=== PATIENT | female | born 1965 | race Caucasian/White ===

== ENCOUNTER 2020-08-03 11:03 | Inpatient (IN) | payer MEDICAID ==
[2020-08-03] VITALS (20 sets, daily range): BP systolic 78–103; BP diastolic 42–72
[~2020-08-03] VITALS: Ht 162.6 cm; Wt 94.5 kg
--- NOTE | 2020-08-03 11:07 | Emergency Room Report ---
History of Present Illness General Chief Complaint: Abnormal Labs Source: Patient, EMS Present Illness HPI Patient is a 55-year-old female past medical history of diabetes noncompliant with medication and obesity who was brought in by EMS from home for generalized weakness. Patient complains of generalized weakness for the past several days and states that she has been in bed not doing much. She reports fevers at home but was afebrile per EMS. She states that she feels dizzy and generally weak no focal weakness. She states that she tried to get out of bed this morning but was unable to due to her weakness. She also complains of paresthesias to her bilateral feet and hands. She states that it feels like a numb tingly feeling. She denies any chest pain or shortness of breath. She denies any abdominal pain, dysuria or diarrhea. Patient was given 150 cc of normal saline by EMS prior to arrival. They state that her blood glucose on the glucometer read high which is over 400. Allergies: Coded Allergies: No Known Allergies (Unverified , 08/03/20) COVID-19 Screening Contact w/high risk pt: No Experienced COVID-19 symptoms?: No COVID-19 Testing performed STORAGE BATTERY INSPECTOR: No Patient History Now: No Reviewed Nursing Documentation: PMH: Agreed; PSxH: Agreed Nursing Documentation-PMH Hx Diabetes: Yes Review of Systems All Other Systems: negative except mentioned in HPI Physical Exam Vital Signs Date Time Temp Pulse Resp B/P (MAP) Pulse Ox O2 Delivery O2 Flow Rate FiO2 08/03/20 10:59 98.4 88 18 103/65 (78) 98 Room Air Sp02 EP Interpretation: reviewed, normal General Appearance: no apparent distress, alert, GCS 15, non-toxic Head: normocephalic, atraumatic Eyes: bilateral eye normal inspection, bilateral eye PERRL ENT: normal pharynx, dry mucus membranes, other - Mild generalized facial edema Neck: full range of motion, supple, no meningismus Respiratory: chest non-tender, no respiratory distress, no accessory muscle use, speaking full sentences Cardiovascular #1: regular rate, rhythm Gastrointestinal: non tender, soft, no guarding, rebound, overweight Rectal: deferred Neurologic: molecular physicist III-XII nml as tested, oriented x3, other - Bilateral lower extremity 3/5 motor strength symmetric and complains of paresthesias to her lower extremities below the knee, 5 out of 5 motor strength bilateral upper extremities unable to assess gait at this time. Psychiatric: no suicidal/homicidal ideation Skin: no rash Lymphatic: no adenopathy Procedures Critical Care Time Critical Care Time Total critical care time: Approximately 35 minutes. Due to a high probability of clinically significant, life threatening deterioration, the patient required my highest level of preparedness to intervene emergently and I personally spent this critical care time directly and personally managing the patient. This critical care time included obtaining a history; examining the patient; pulse oximetry; ordering and review of studies; arranging urgent treatment with development of a management plan; evaluation of patient's response to treatment; frequent reassessment; and, discussions with other providers.This critical care time was performed to assess and manage the high probability of imminent, life- threatening deterioration that could result in multi-organ failure. It was exclusive of separately billable procedures and treating other patients and teaching time. Please see MDM section and the rest of the note for further information on patient assessment and treatment. Medical Decision Making Diagnostic Impression: Primary Impression: Sepsis Additional Impressions: UTI (urinary tract infection) Leukocytosis Hyperglycemia Hyponatremia ER Course Patient's BNP is elevated to almost 6000. Patient's chest x-ray demonstrates no evidence for acute CHF. I will use ideal body weight for fluid resuscitation. Patient given a total of 2 L of normal saline. Patient given 2 doses of IV insulin for her hyperglycemia but does not demonstrate DKA. Patient started on broad-spectrum antibiotics. Patient pending MRIs of the brain and cervical spine and thoracic spine and lumbar spine. Oncoming physician Dr. Hall to follow-up on the studies. Patient will also likely require lumbar puncture depending on the MRI results. This can be decided by the admitting physician. Laboratory Tests Test 08/03/20 11:15 08/03/20 11:20 08/03/20 11:50 08/03/20 12:15 Venous Blood pH 7.279 Venous Blood Partial Pressure CO2 46.5 Venous Blood Partial Pressure O2 32.7 Venous Blood HCO3 21.3 Venous Blood Base Excess -5.4 Venous Blood Carboxyhemoglobin 1.2 % (0.5-1.5) Methemoglobin 0.3 White Blood Count 30.1 K/UL (4.8-10.8) *H Red Blood Count 3.85 M/UL (4.20-5.40) L Hemoglobin 11.4 G/DL (12.0-16.0) L Hematocrit 34.5 % (37.0-47.0) L Mean Corpuscular Volume 90 FL (80-99) Mean Corpuscular Hemoglobin 29.7 PG (27.0-31.0) Mean Corpuscular Hemoglobin Concent 33.2 G/DL (32.0-36.0) Red Cell Distribution Width 12.3 % (11.6-14.8) Platelet Count 143 K/UL (150-450) L Mean Platelet Volume 11.4 FL (6.5-10.1) H Neutrophils (%) (Auto) % (45.0-75.0) Lymphocytes (%) (Auto) % (20.0-45.0) Monocytes (%) (Auto) % (1.0-10.0) Eosinophils (%) (Auto) % (0.0-3.0) Basophils (%) (Auto) % (0.0-2.0) Differential Total Cells Counted 100 Neutrophils % (Manual) 78 % (45-75) H Lymphocytes % (Manual) 5 % (20-45) L Monocytes % (Manual) 11 % (1-10) H Eosinophils % (Manual) 0 % (0-3) Basophils % (Manual) 0 % (0-2) Band Neutrophils 6 % (0-8) Platelet Estimate Decreased L Platelet Morphology Normal Polychromasia 1+ Anisocytosis 1+ Erythrocyte Sedimentation Rate 93 MM/HR (0-30) H Prothrombin Time 10.7 SEC (9.30-11.50) Prothrombin Time INR 1.0 (0.9-1.1) Activated Partial Thromboplast Time 31 SEC (23-33) Sodium Level 126 MMOL/L (136-145) L Potassium Level 4.8 MMOL/L (3.5-5.1) Chloride Level 91 MMOL/L (98-107) L Carbon Dioxide Level 22 MMOL/L (21-32) Anion Gap 13 mmol/L (5-15) Blood Urea Nitrogen 32 mg/dL (7-18) H Creatinine 2.1 MG/DL (0.55-1.30) H Estimated Glomerular Filtration Rate 24.3 mL/min (>60) Glucose Level 667 MG/DL (74-106) *H Calcium Level 7.9 MG/DL (8.5-10.1) L Phosphorus Level 4.8 MG/DL (2.5-4.9) Magnesium Level 1.8 MG/DL (1.8-2.4) Total Bilirubin 0.9 MG/DL (0.2-1.0) Aspartate Amino Transferase (AST) 46 U/L (15-37) H Alanine Aminotransferase (ALT) 50 U/L (12-78) Alkaline Phosphatase 246 U/L (46-116) H Total Creatine Kinase 46 U/L (26-308) Troponin I 0.010 ng/mL (0.000-0.056) C-Reactive Protein, Quantitative 55.3 mg/dL (0.00-0.90) H Pro-B-Type Natriuretic Peptide 5930 pg/mL (0-125) H Total Protein 6.5 G/DL (6.4-8.2) Albumin 2.3 G/DL (3.4-5.0) L Globulin 4.2 g/dL Albumin/Globulin Ratio 0.5 (1.0-2.7) L Acetone Level Positive-small (NEGATIVE) Urine Color Pale yellow Urine Appearance Slightly cloudy Urine pH 5 (4.5-8.0) Urine Specific Mittie 1.015 (1.005-1.035) Urine Protein 3+ (NEGATIVE) H Urine Glucose (UA) 4+ (NEGATIVE) H Urine Ketones 2+ (NEGATIVE) H Urine Blood 4+ (NEGATIVE) H Urine Nitrite Negative (NEGATIVE) Urine Bilirubin Negative (NEGATIVE) Urine Urobilinogen Normal MG/DL (0.0-1.0) Urine Leukocyte Esterase 1+ (NEGATIVE) H Urine RBC 2-4 /HPF (0 - 2) H Urine WBC 20-30 /HPF (0 - 2) H Urine Squamous Epithelial Cells Few /LPF (NONE/OCC) Urine Bacteria Moderate /HPF (NONE) H Lactic Acid Level 2.40 mmol/L (0.4-2.0) H POC Whole Blood Glucose 515 MG/DL (74-106) *H Microbiology Date/Time Source Procedure Growth Status 08/03/20 12:04 Nasopharynx SARS-CoV-2 RdRp Gene Assay - Final Complete EKG Diagnostic Results Troponin ordered: Yes When was troponin ordered?: Aug 03, 2020 EKG Time: 11:12 EP Interpretation: Marie Denny MD Rate: normal - 83 bpm Rhythm: NSR ST Segments: no acute changes ASA given to the pt in ED: No Rhythm Strip Diag. Results Rhythm Strip Time: 11:20 EP Interpretation: yes - Marie Denny MD Rate: 83 bpm Rhythm: NSR, no PVC's, no ectopy Chest X-Ray Diagnostic Results Chest X-Ray Diagnostic Results : Chest X-Ray Ordered: Yes # of Views/Limited/Complete: 1 View Indication: Other - weakness EP Interpretation: Yes Interpretation: no consolidation, no effusion, no pneumothorax, no acute cardiopulmonary disease Impression: No acute disease Electronically Signed by: Marie Denny MD Last Vital Signs Date Time Temp Pulse Resp B/P (MAP) Pulse Ox O2 Delivery O2 Flow Rate FiO2 08/03/20 10:59 98.4 88 18 103/65 (78) 98 Room Air Disposition: ADMITTED INPATIENT - ICU Condition: Critical Signed Out To: Dr. Hall pending MRI's brain, C, T, and L spine at 1400 Physician Consult: Dr. Camp Scripts No Active Prescriptions or Reported Meds Additional Instructions: Please note that this report is being documented using [employer] technology. This can lead to erroneous entry secondary to incorrect interpretation by the dictating instrument. Sepsis Event Note Evaluation Current Stage of Sepsis: Sepsis Possible Source: Genitourinary Focused Exam Allergies: Coded Allergies: No Known Allergies (Unverified , 08/03/20) Date Exam Occurred: Aug 03, 2020 Time Exam Occurred: 13:08 Laboratory Studies Laboratory Tests Test 08/03/20 11:15 08/03/20 11:20 08/03/20 11:50 08/03/20 12:15 Venous Blood pH 7.279 Venous Blood Partial Pressure CO2 46.5 Venous Blood Partial Pressure O2 32.7 Venous Blood HCO3 21.3 Venous Blood Base Excess -5.4 Venous Blood Carboxyhemoglobin 1.2 % (0.5-1.5) Methemoglobin 0.3 White Blood Count 30.1 K/UL (4.8-10.8) *H Red Blood Count 3.85 M/UL (4.20-5.40) L Hemoglobin 11.4 G/DL (12.0-16.0) L Hematocrit 34.5 % (37.0-47.0) L Mean Corpuscular Volume 90 FL (80-99) Mean Corpuscular Hemoglobin 29.7 PG (27.0-31.0) Mean Corpuscular Hemoglobin Concent 33.2 G/DL (32.0-36.0) Red Cell Distribution Width 12.3 % (11.6-14.8) Platelet Count 143 K/UL (150-450) L Mean Platelet Volume 11.4 FL (6.5-10.1) H Neutrophils (%) (Auto) % (45.0-75.0) Lymphocytes (%) (Auto) % (20.0-45.0) Monocytes (%) (Auto) % (1.0-10.0) Eosinophils (%) (Auto) % (0.0-3.0) Basophils (%) (Auto) % (0.0-2.0) Differential Total Cells Counted 100 Neutrophils % (Manual) 78 % (45-75) H Lymphocytes % (Manual) 5 % (20-45) L Monocytes % (Manual) 11 % (1-10) H Eosinophils % (Manual) 0 % (0-3) Basophils % (Manual) 0 % (0-2) Band Neutrophils 6 % (0-8) Platelet Estimate Decreased L Platelet Morphology Normal Polychromasia 1+ Anisocytosis 1+ Erythrocyte Sedimentation Rate 93 MM/HR (0-30) H Prothrombin Time 10.7 SEC (9.30-11.50) Prothromb Time International Ratio 1.0 (0.9-1.1) Activated Partial Thromboplast Time 31 SEC (23-33) Sodium Level 126 MMOL/L (136-145) L Potassium Level 4.8 MMOL/L (3.5-5.1) Chloride Level 91 MMOL/L (98-107) L Carbon Dioxide Level 22 MMOL/L (21-32) Anion Gap 13 mmol/L (5-15) Blood Urea Nitrogen 32 mg/dL (7-18) H Creatinine 2.1 MG/DL (0.55-1.30) H Estimat Glomerular Filtration Rate 24.3 mL/min (>60) Glucose Level 667 MG/DL (74-106) *H Calcium Level 7.9 MG/DL (8.5-10.1) L Phosphorus Level 4.8 MG/DL (2.5-4.9) Magnesium Level 1.8 MG/DL (1.8-2.4) Total Bilirubin 0.9 MG/DL (0.2-1.0) Aspartate Amino Transf (AST/SGOT) 46 U/L (15-37) H Alanine Aminotransferase (ALT/SGPT) 50 U/L (12-78) Alkaline Phosphatase 246 U/L (46-116) H Total Creatine Kinase 46 U/L (26-308) Troponin I 0.010 ng/mL (0.000-0.056) C-Reactive Protein, Quantitative 55.3 mg/dL (0.00-0.90) H Pro-B-Type Natriuretic Peptide 5930 pg/mL (0-125) H Total Protein 6.5 G/DL (6.4-8.2) Albumin 2.3 G/DL (3.4-5.0) L Globulin 4.2 g/dL Albumin/Globulin Ratio 0.5 (1.0-2.7) L Acetone Level Positive-small (NEGATIVE) Urine Color Pale yellow Urine Appearance Slightly cloudy Urine pH 5 (4.5-8.0) Urine Specific Mittie 1.015 (1.005-1.035) Urine Protein 3+ (NEGATIVE) H Urine Glucose (UA) 4+ (NEGATIVE) H Urine Ketones 2+ (NEGATIVE) H Urine Blood 4+ (NEGATIVE) H Urine Nitrite Negative (NEGATIVE) Urine Bilirubin Negative (NEGATIVE) Urine Urobilinogen Normal MG/DL (0.0-1.0) Urine Leukocyte Esterase 1+ (NEGATIVE) H Urine RBC 2-4 /HPF (0 - 2) H Urine WBC 20-30 /HPF (0 - 2) H Urine Squamous Epithelial Cells Few /LPF (NONE/OCC) Urine Bacteria Moderate /HPF (NONE) H Lactic Acid Level 2.40 mmol/L (0.4-2.0) H POC Whole Blood Glucose 515 MG/DL (74-106) *H Vital Signs Last 24 Hour Vital Signs Date Time Temp Pulse Resp B/P (MAP) Pulse Ox O2 Delivery O2 Flow Rate FiO2 08/03/20 11:18 98.4 91 18 103/65 98 Room Air 08/03/20 10:59 98.4 88 18 103/65 (78) 98 Room Air Respiratory Exam: Clear Cardiovascular Exam: RRR Capillary Refill: Less Than 2 Seconds Peripheral Pulse: Strong Marie Denny M.D. Aug 03, 2020:07
[2020-08-03] MEDS ORDERED: Insulin Human Regular 100units/ml 3ml IV ONE ×3 (11:15→18:15)
--- NOTE | 2020-08-03 11:24 | NUR ---
ED Nurse Note: Patient UMAIR RA34 from home c/o hyperglycemia. Per EMS, BS says "High". Denies nausea/vomiting. Pt also c/o weakness and chronic foot pain. a/ox4, bp 89/56. other vss at this time. blood sugar critically high. bedrest. incontinent b/b.
--- NOTE | 2020-08-03 11:25 | NUR ---
ED Nurse Note: Patient UMAIR WANG from home c/o hyperglycemia. Per EMS, BS says "High". Denies nausea/vomiting. Pt also c/o weakness and chronic foot pain. a/ox4, bp 89/56. other vss at this time. blood sugar critically high. bedrest. incontinent b/b. Addendum: 08/03/20 at 1128 by ONDINA patient presents with peripheral iv access left ac. blood collected, sent to lab.
[2020-08-03 11:39] LABS: HEMATOCRIT 34.5 % (37.0-47.0); HEMOGLOBIN 11.4 G/DL (12.0-16.0); MEAN CORPUSCULAR VOLUME 90 FL (80-99); PLATELET COUNT 143 K/UL (150-450); RED BLOOD COUNT 3.85 M/UL (4.20-5.40); RED CELL DISTRIBUTION WIDTH 12.3 % (11.6-14.8)
[2020-08-03 11:45] LABS: WHITE BLOOD COUNT 30.1 K/UL (4.8-10.8)
[2020-08-03] MEDS ORDERED: Cefepime HCl 2 GM in D5W 55 ML IVPB ONE (12:00)
[2020-08-03] MEDS ORDERED: Vancomycin 1.5gm/300ml Premix 300 ML IVPB ONE (12:00)
[2020-08-03 12:07] LABS: ALANINE AMINOTRANSFERASE 50 U/L (12-78); ALBUMIN 2.3 G/DL (3.4-5.0); ALBUMIN/GLOBULIN RATIO 0.5 (1.0-2.7); ALKALINE PHOSPHATASE 246 U/L (46-116); ANION GAP 13 mmol/L (5-15); ASPARTATE AMINO TRANSFERASE 46 U/L (15-37); BILIRUBIN,TOTAL 0.9 MG/DL (0.2-1.0); BLOOD UREA NITROGEN 32 mg/dL (7-18); CALCIUM 7.9 MG/DL (8.5-10.1); CARBON DIOXIDE 22 MMOL/L (21-32); CHLORIDE 91 MMOL/L (98-107); CREATINE KINASE 46 U/L (26-308); CREATININE 2.1 MG/DL (0.55-1.30); PHOSPHORUS 4.8 MG/DL (2.5-4.9); POTASSIUM 4.8 MMOL/L (3.5-5.1); SODIUM 126 MMOL/L (136-145)
--- NOTE | 2020-08-03 12:21 | Diagnostic Imaging Report ---
Indication: Shortness of breath Technique: One view of the chest Comparison: none Findings: Body habitus limits evaluation. The heart is borderline enlarged. No definite acute infiltrates, effusions, or congestion. Impression: Borderline cardiomegaly. No definite acute process
[2020-08-03] MEDS ORDERED: Heparin1,000 units/500ml Premix(Conc:2 units/ml) IV ONE (12:30)
[2020-08-03] MEDS ORDERED: Lidocaine 1% Plain 30 ml INJ ONE (12:30)
[2020-08-03 12:32] LABS: APPEARANCE,URINE SLIGHTLY CLOUDY; BILIRUBIN, URINE NEGATIVE (NEGATIVE); COLOR,URINE PALE YELLOW; GLUCOSE, URINE (UA) 4+ (NEGATIVE); KETONES,URINE 2+ (NEGATIVE); LEUKOCYTE ESTERASE ,URINE 1+ (NEGATIVE); NITRITE,URINE NEGATIVE (NEGATIVE); PH,URINE 5 (4.5-8.0); PROTEIN,URINE 3+ (NEGATIVE); UROBILINOGEN,URINE NORMAL MG/DL (0.0-1.0)
[2020-08-03] MEDS ORDERED: Gadavist 7.5mMol/7.5ml vial IV PRN (12:45)
--- NOTE | 2020-08-03 12:52 | NUR ---
ED Nurse Note: patient was taken to MRI via [facility]
--- NOTE | 2020-08-03 13:08 | NUR ---
patient back on floor from ct scan.
--- NOTE | 2020-08-03 13:21 | Diagnostic Imaging Report ---
Indications: Headache Technique: Spiral acquisitions obtained through the brain. Angled axial and coronal 5 x 5 mm slices were reconstructed. Total dose length product 1045 mGycm. CTDI vol(s) 53 mGy. Dose reduction achieved using automated exposure control Comparison: None. Findings: No acute intracranial hemorrhage or edema mass effect nor midline shift. Normal rowan-white differentiation. Normal size ventricles and extra axial CSF spaces. The mastoids are clear. The calvarium is intact Impression: Negative The CT scanner at [facility] is accredited by the [employer] and the scans are performed using protocols designed to limit radiation exposure to as low as reasonably achievable to attain images of sufficient resolution adequate for diagnostic evaluation.
--- NOTE | 2020-08-03 13:49 | NUR ---
ED Nurse Note: Dr. Almendarez here to insert picc line. Addendum: 08/03/20 at 1400 by DCHO left upper arm picc line. intact and patent.
--- NOTE | 2020-08-03 14:37 | NUR ---
[facility]
--- NOTE | 2020-08-03 16:35 | Brief Operative Note ---
Immediate Post Operative Note Operative Note Pre-op Diagnosis: needs access Procedure: PICC Post-op Diagnosis: same as pre-op Anesthesia: local Specimen: none Complications: none Fluids: none Implant(s) used?: No Jalil Coello MD Aug 03, 2020 16:34
--- NOTE | 2020-08-03 17:25 | NUR ---
patient back on floor from mri.
--- NOTE | 2020-08-03 17:45 | Diagnostic Imaging Report ---
Indication: Right lower extremity weakness, fever, paralysis Technique: sagittal T1 fast spin echo, axial T1 and T2 FLAIR PROPELLER, axial T2 FS PROPELLER, T2* GRE, axial diffusion weighted images, post contrast axial and coronal T1 FLAIR PROPELLER images. ADC and exponential ADC maps generated Comparison: Head CT of earlier the same day Findings: . No abnormal areas of restricted diffusion to suggest acute infarction. No acute hemorrhage or edema. No mass effect nor midline shift. There is a equivocal mild pachymeningeal enhancement, most notable in the tentorium and to a slight extent over the convexities. No parenchymal enhancement.. Normal size ventricles and extra axial CSF spaces. There is ethmoid sinus disease. The visualized orbits are unremarkable.. There is a small amount of fluid within the right mastoid air cells. . 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 Significance uncertain, possible differential considerations include infection, intracranial hypotension, idiopathic pachymeningitis Otherwise unremarkable exam. No evidence of infarct, intracranial bleed, or significant parenchymal enhancement. No mass effect. Sinus and right mastoid disease incidentally noted
--- NOTE | 2020-08-03 17:58 | Diagnostic Imaging Report ---
Indication: Weakness, right lower extremity paralysis Technique: Sagittal T1 fast spin echo, sagittal and axial T2 FRFSE, sagittal STIR, axial T1, precontrast axial T1 fat saturated, postcontrast axial and sagittal T1 fat-saturated images obtained of the lumbar spine Comparison: none Findings: Vertebral body heights are preserved. The bony alignment is normal. The disc spaces are preserved. There is slight desiccation of the L4-5 disc. The conus medullaris terminates at the L1-2 level. The disc spaces are preserved. No significant disc bulge or protrusion, spinal stenosis, or neural foraminal stenosis is demonstrated. Postcontrast images demonstrate no unusual contrast enhancement. Specifically, no significant dorsal nerve root or cauda equina enhancement is demonstrated. Included extraspinal soft tissues are unremarkable. Impression: Essentially unremarkable exam. No evidence of significant neural impingement or nerve root enhancement
--- NOTE | 2020-08-03 18:02 | Diagnostic Imaging Report ---
Indication: Right lower extremity paralysis Technique: Sagittal T1 FLAIR, sagittal and axial T2 FRFSE and sagittal STIR, axial 3-D COSMIC ASPIR, pre and postcontrast fat-saturated axial and sagittal T1-weighted images of the cervical spine Comparison: none Findings: No intrinsic cord signal abnormality demonstrated. Normal bony alignment. Vertebral marrow signal is normal. Vertebral body heights are preserved. The disc spaces are preserved. There is no prevertebral soft tissue swelling. No significant disc bulge or protrusion, spinal stenosis, or neural foraminal stenosis. No unusual contrast enhancement is demonstrated. Impression: Negative
--- NOTE | 2020-08-03 18:43 | NUR ---
ED Nurse Note: gave report to SOHEILA Kat on ICU unit.
--- NOTE | 2020-08-03 18:49 | NUR ---
ED Nurse Note: patient admitted to ICU floor for sepsis. a/ox4, bp 94/50, other vss. calm, cooperative, nad noted, belongings transferred with patient. last blood sugar 506, md aware, novolin 10 units given.
--- NOTE | 2020-08-03 18:55 | NUR ---
NURSE NOTES: Patient arrived to the unit on gurney from the ED and placed into room 246-F. underwear hemmer placed, vital signs taken, accucheck: 474. Received report from SOHEILA Kat. Only belongings are a shirt and bra; all other belongings taken home from family. Will initiate plan of care.
--- NOTE | 2020-08-03 19:18 | NUR ---
NURSE NOTES: Called Dr. Camp urgent line for admission orders, awaiting call back.
[2020-08-03] MEDS: Dyna-Hex 2% Top Sol 2oz TOPIC SCH (20:00)
--- NOTE | 2020-08-03 20:00 | NUR ---
NURSE NOTES: Received orders from Dr. Camp, will carry out. Blood drawn via left upper arm PICC for CBC CMP, TSH and sent to labs for results. 1L NS bolus running via PICC.
[2020-08-03] MEDS ORDERED: Milk of Magnesia 30ml Ud ORAL PRN (20:15)
--- NOTE | 2020-08-03 20:59 | NUR ---
NURSE NOTES: Potassium resulted in 2.3, recommended by Cammy from lab that blood maybe contaminated and to have a re-draw. Will re-draw now.
[2020-08-03] MEDS: NovoLOG Insulin Flexpen SUBQ SCH (21:00)
[2020-08-03] MEDS ORDERED: Cefepime HCl 1 GM in NS 55 ML IVPB ONE (21:00)
[2020-08-03] MEDS: Levemir Flexpen SUBQ SCH (21:34)
[2020-08-03] MEDS: Heparin 5000 units/ml inj SUBQ SCH (21:36)
[2020-08-03 21:43] LABS: ALBUMIN 1.9 G/DL (3.4-5.0); ALBUMIN/GLOBULIN RATIO 0.5 (1.0-2.7); BILIRUBIN,TOTAL 0.9 MG/DL (0.2-1.0); CALCIUM 7.1 MG/DL (8.5-10.1); CREATININE 1.8 MG/DL (0.55-1.30); POTASSIUM 3.9 MMOL/L (3.5-5.1)
--- NOTE | 2020-08-03 21:45 | NUR ---
NURSE NOTES: Dr. Camp is here to see and assess patient. Updates given.
--- NOTE | 2020-08-03 22:14 | NUR ---
NURSE NOTES: BP has been decreasing, all extremities BP taken. Latest BP: 75/46. Hillman catheter inserted, 800ml urine out.
--- NOTE | 2020-08-03 22:15 | NUR ---
NURSE NOTES: Called Dr. Camp urgent line to inform him of low BP.
[2020-08-03 23:24] LABS: HEMATOCRIT 25.5 % (37.0-47.0); HEMOGLOBIN 8.9 G/DL (12.0-16.0); MEAN CORPUSCULAR VOLUME 87 FL (80-99); PLATELET COUNT 109 K/UL (150-450); RED BLOOD COUNT 2.95 M/UL (4.20-5.40); RED CELL DISTRIBUTION WIDTH 12.7 % (11.6-14.8); WHITE BLOOD COUNT 18.9 K/UL (4.8-10.8)
[2020-08-04] VITALS (14 sets, daily range): BP systolic 90–142; BP diastolic 49–82
--- NOTE | 2020-08-04 | NUR ---
NURSE NOTES: Bed bath given, linens changed. Patient able to turn and repositioned. BP stabilizing.
[2020-08-04] MEDS ORDERED: Insulin Human Regular 100units/ml 3ml IV SCH (01:00)
--- NOTE | 2020-08-04 02:00 | NUR ---
NURSE NOTES: 10units regular insulin given one time order by Dr. Camp.
--- NOTE | 2020-08-04 02:30 | History and Physical Report ---
DATE OF ADMISSION: 08/03/2020 REASON FOR ADMISSION: Diabetic ketoacidosis. HISTORY OF PRESENT ILLNESS: This 55-year-old female, with a known history of diabetes mellitus, who is noncompliant with medications and diabetes self-care, has had several days of anorexia and progressive weakness. She has not been able to mobilize. She has had some fevers at home. She thinks she may have had some fevers at home as well. She has not been able to get up due to dizziness and weakness. She feels increasing pain and burning in her hands and feet. She denies chest pain, nausea, vomiting, or shortness of breath. She has not had any dysuria or diarrhea. In the emergency room, the patient was noted to have significantly abnormal lab studies and admitted to the intensive care unit for further management. Central venous access was obtained with a PICC line and fluid challenges were given as well. PAST MEDICAL HISTORY: Diabetes mellitus. ALLERGIES: None. CURRENT MEDICATIONS: None. FAMILY HISTORY: Noncontributory. SOCIAL HISTORY: Negative for smoking, alcohol, or substance abuse. REVIEW OF SYSTEMS: Notable for the absence of COVID-19 exposure or risk factors, per daughter 2 to 3 months of weight loss and poor appetite, otherwise all systems negative other than noted above. PHYSICAL EXAMINATION: VITAL SIGNS: Blood pressure has ranged from 74 to 105 systolic over 47 to 65 diastolic, heart rate in the 80s, respiratory rate 18, and afebrile. GENERAL: Appears older than stated age. Oropharynx clear. Mucous membranes dry. NECK: Supple. No adenopathy. LUNGS: Clear. BREASTS: No breast masses. CHEST WALL: Without deformity. CARDIAC: Regular, no murmur. ABDOMEN: Soft. No focal tenderness. EXTREMITIES: No edema. It should be noted that breast exam is limited due to body positioning and location at the time of this evaluation. LABORATORY DATA: Urinalysis with 20-30 white cells. Sodium 126, potassium 4.8, chloride 91, bicarb 22, BUN 32, creatinine 2.1. Glucose 667. Troponin negative. Pro-natriuretic peptide 5900, albumin 2.3, and ketones slightly positive. Imaging studies of the lumbar and cervical spine revealed no acute pathology. MRI of the brain revealed possible meningeal inflammation. Chest x-ray with no acute process. IMPRESSION: 1. Urinary tract infection. 2. Probable sepsis. 3. Hypovolemia. 4. Acute renal failure. 5. Diabetes with diabetic ketoacidosis. 6. Lactic acidosis. 7. Hyponatremia. 8. Hypochloremia. 9. Acute on chronic diastolic congestive heart failure. 10. Noncompliance. 11. Severe protein-calorie malnutrition. PLAN: Insulin intravenously and possible drip, hydration, fluid challenge. May need pressors, empiric antimicrobials, protein supplement. Further workup based on initial diagnostic studies. [place] M.D. DR: AURA JOB#: [id number] CC:
--- NOTE | 2020-08-04 04:00 | NUR ---
NURSE NOTES: Left upper arm PICC line dressing changed w/ biopatch. Blood drawn via PICC line for AM results. Phone hooked up in patient's room per family request.
[2020-08-04 05:41] LABS: ALANINE AMINOTRANSFERASE 44 U/L (12-78); ALBUMIN/GLOBULIN RATIO 0.5 (1.0-2.7); ALKALINE PHOSPHATASE 228 U/L (46-116); ASPARTATE AMINO TRANSFERASE 33 U/L (15-37); BILIRUBIN,TOTAL 0.9 MG/DL (0.2-1.0); BLOOD UREA NITROGEN 36 mg/dL (7-18); CALCIUM 7.6 MG/DL (8.5-10.1); CARBON DIOXIDE 22 MMOL/L (21-32); CHLORIDE 99 MMOL/L (98-107); CREATININE 1.6 MG/DL (0.55-1.30); POTASSIUM 3.6 MMOL/L (3.5-5.1); SODIUM 132 MMOL/L (136-145)
[2020-08-04 05:49] LABS: HEMATOCRIT 27.8 % (37.0-47.0); MEAN CORPUSCULAR VOLUME 85 FL (80-99); PLATELET COUNT 124 K/UL (150-450); RED BLOOD COUNT 3.27 M/UL (4.20-5.40); RED CELL DISTRIBUTION WIDTH 13.5 % (11.6-14.8); WHITE BLOOD COUNT 20.4 K/UL (4.8-10.8)
--- NOTE | 2020-08-04 06:00 | NUR ---
NURSE NOTES: Patient is sleeping comfortably. BP: 102/52.
[2020-08-04] MEDS: NovoLOG Insulin Flexpen SUBQ SCH ×4 (06:28→22:58)
[2020-08-04] MEDS ORDERED: NovoLOG Insulin Flexpen SUBQ SCH (06:30)
--- NOTE | 2020-08-04 07:18 | NUR ---
NURSE HAND-OFF REPORT: Latest Vital Signs: Temperature 98.0 , Pulse 87 , B/P 110 /61 , Respiratory Rate 19 , O2 SAT 94 , Room Air, O2 Flow Rate . Vital Sign Comment: Stable EKG Rhythm: Sinus Rhythm Rhythm change?: N MD Notified?: - MD Response: Latest Hickey Fall Score: 60 Fall Risk: High Risk Safety Measures: Call light Within Reach, Bed Alarm Zone 2, Side Rails Side Rails x2, Bed position Low and Locked. Fall Precautions: Yellow Socks Yellow Gown Door Sign Patient Fall Education Report given to .
--- NOTE | 2020-08-04 07:19 | NUR ---
NURSE NOTES: Received patient in bed. On room air. Awake, verbal, oriented, able to make needs known. Currently eating breakfast. No acute distress. Bed in lowest position. Call light within reach. Will continue plan of care.
--- NOTE | 2020-08-04 07:26 | Diagnostic Imaging Report ---
Indications: Needs long-term IV access Technique: Procedure performed at bedside. Procedural timeout performed. Ultrasound confirms patent compressible left basilic vein. Total sterile technique, including sterile probe cover and sterile gel, sterile gloves, hand hygiene, hat, mask,, sterile gown, large sterile drape, and preparation with 2% chlorhexidine utilized. Local anesthesia with 1% lidocaine. Under real-time ultrasound guidance, puncture basilic vein using 21-gauge needle, passage 0.018 guidewire, exchange for 4 Estonian peel-away sheath. 4 Estonian Bard dual-lumen power PICC cut to 44 cm. It was inserted through the peel-away sheath. Peel-away sheath and guidewire removed. Catheter fixed to the skin. Both catheter ports aspirated and flushed. Patient tolerated procedure well, without immediate complication. Followup chest x-ray obtained, documents catheter tip position at the high right atrium Impression: Successful bedside placement of left arm PICC under sonographic guidance, as described above.
--- NOTE | 2020-08-04 08:22 | NUR ---
NURSE NOTES: Dr. Jarrett Alexis at bedside. made aware of latest WBC results.
[2020-08-04] MEDS: Cefepime HCl 500 MG in NS 55 ML IV SCH (08:52)
[2020-08-04] MEDS: Heparin 5000 units/ml inj SUBQ SCH ×2 (08:53→21:00)
[2020-08-04] MEDS: Docusate 250mg cap ORAL SCH (09:00)
[2020-08-04 09:20] LABS: CHOLESTEROL 150 MG/DL (< 200); HDL CHOLESTEROL 18 MG/DL (40-60); TRIGLYCERIDES 228 MG/DL (30-150)
[2020-08-04] MEDS ORDERED: Vancomycin 1.5gm/300ml Premix IVPB SCH (10:00)
--- NOTE | 2020-08-04 10:35 | NUR ---
NURSE NOTES: Informed Dr. Camp that patient's daughter is concerned about patient's lower extremities weakness. said that physical therapy evaluation is not ok for now since patient had low blood pressure yesterday.
--- NOTE | 2020-08-04 11:15 | Consultation ---
DATE OF CONSULTATION: 08/04/2020 INFECTIOUS DISEASE CONSULTATION CONSULTING PHYSICIAN: Jarrett Alexis MD. This consult is for coverage of Dr. Derrick Nunez. PRIMARY ATTENDING PHYSICIAN: North Camp MD. REASON FOR CONSULT: Sepsis, UTI. HISTORY OF PRESENT ILLNESS: This is a 55-year-old female, admitted yesterday from home with anorexia, weakness, dizziness. The patient is diabetic and did not take any medication, was found to have blood sugar of 667, had leukocytosis of 30,000 at the time of admission. She was also hypotensive with blood pressures as low as 78/44. PAST MEDICAL HISTORY: Diabetes mellitus, obesity. ALLERGIES: No known drug allergies. MEDICATIONS: Levemir, insulin, vancomycin, cefepime, Tylenol. SOCIAL HISTORY: . Denies alcohol, drug abuse or smoking. REVIEW OF SYSTEMS: Generalized weakness, nausea. No vomiting. No coughing. No dysuria. PHYSICAL EXAMINATION: VITAL SIGNS: Temperature is 98, pulse 89, blood pressure 90/62. GENERAL APPEARANCE: No acute distress. Obese. HEAD AND NECK: [place] conjunctivae. HEART: Normal rate. LUNGS: Clear. ABDOMEN: Soft, nontender. EXTREMITIES: No edema. LABORATORY AND DIAGNOSTIC DATA: WBC 20.4, hemoglobin 10.0, hematocrit 27.8, platelet is 124. Sodium 132, potassium 3.6, chloride 99, bicarb 22, BUN 36, creatinine 1.6. Creatinine at the time of admission was 2.1. UA showed wbc of 20 to 30, bacteria moderate. Chest x-ray showed cardiomegaly. CT scan of the head was negative. MRI of the neck was negative. COVID test is negative. IMPRESSION: Likely sepsis with leukocytosis and hypotension, has pyuria, may have UTI, has diabetes mellitus with diabetic ketoacidosis, acute renal failure, obesity, acute on chronic diastolic CHF. RECOMMENDATION: Continue cefepime. Discontinue IV vancomycin. We will follow up the cultures. At the end of my exam, I thank Dr. Camp, for involving me in the care of this patient. Jarrett Alexis M.D. DR: YEVGENIY JOB#: [id number] CC: BRYAN
--- NOTE | 2020-08-04 11:20 | NUR ---
TRANSFER TO FLOOR: Patient transferred to Telemetry room 220-2, per Dr. Camp. Report given to SOHEILA Garcia. Belongings and medications given to SOHEILA Garcia. Family and or S/O informed of transfer. Remains room air. Sinus Rhythm in the monitor.
[2020-08-04] MEDS ORDERED: Levemir Flexpen SUBQ SCH ×2 (11:30)
--- NOTE | 2020-08-04 11:30 | NUR ---
NURSE NOTES: Patient's daughter/Amy Weaver informed via telephone ([phone]) about patient's transfer.
--- NOTE | 2020-08-04 11:33 | NUR ---
NURSE NOTES: Received pt from the ICU alert and awake. pt is verbally responsive. respiration is even and unlabored on room air. pt denies any pain and discomfort. BERNIE PICC line is inplace and intact, no bleeding noted. pt is made comfortable in bed. placed call light within reach. bed alarm is on and bed is locked for safety.
--- NOTE | 2020-08-04 12:47 | Consultation ---
History of Present Illness General Date patient seen: Aug 04, 2020 Reason for Hospitalization: Abnormal Labs Present Illness HPI Patient is a 55-year-old female past medical history of diabetes noncompliant with medication and obesity who was brought in by EMS from home for generalized weakness. Patient complains of generalized weakness for the past several days and states that she has been in bed not doing much. She reports fevers at home but was afebrile per EMS. She states that she feels dizzy and generally weak no focal weakness. She states that she tried to get out of bed this morning but was unable to due to her weakness. She also complains of paresthesias to her bilateral feet and hands. She states that it feels like a numb tingly feeling. She denies any chest pain or shortness of breath. She denies any abdominal pain, dysuria or diarrhea. Patient was given 150 cc of normal saline by EMS prior to arrival. They state that her blood glucose on the glucometer read high which is over 400. abnormal lf'ts surgery called to evaluate Allergies: Coded Allergies: No Known Allergies (Unverified , 08/03/20) COVID-19 Screening Contact w/high risk pt: No Experienced COVID-19 symptoms?: No Medication History No Active Prescriptions or Reported Meds Patient History Limited by: medical condition History Provided By: Patient, Medical Record, PMD Healthcare decision maker Resuscitation status Advanced Directive on File Past Medical/Surgical History Past Medical/Surgical History: (1) Hyperglycemia (2) Hyponatremia (3) Leukocytosis (4) UTI (urinary tract infection) (5) Sepsis Review of Systems Review of Symptoms General ROS: no weight loss or fever Psychological ROS: no depression or mood changes, no memory loss Ophthalmic ROS: no visual changes or eye irritation ENT ROS: no nasal congestion, hearing loss, dizziness Allergy and Immunology ROS: no allergic symptoms or urticaria Hematological and Lymphatic ROS: no swollen glands, unusual bleeding or bruising Endocrine ROS: no polyuria, polydipsia, weight changes, temperature intolerance Respiratory ROS: no cough, shortness of breath, or wheezing Cardiovascular ROS: no chest pain or dyspnea on exertion Gastrointestinal ROS: denies abdominal pain, bright red blood in stool. Musculoskeletal ROS: no myalgias or arthralgias Neurological ROS: no TIA or stroke symptoms Dermatological ROS: no new or changing skin lesions, rashes or pruritis Physical Exam Physical Exam General appearance: alert, cooperative, no distress, appears stated age Head: Normocephalic, without obvious abnormality, atraumatic Eyes: conjunctivae/corneas clear. PERRL, EOM's intact. Fundi benign Throat: Lips, mucosa, and tongue normal. Teeth and gums normal Neck: supple, symmetrical, trachea midline, no adenopathy, thyroid: not enlarged, symmetric, no tenderness/mass/nodules, no carotid bruit and no JVD Lungs: clear to auscultation bilaterally Heart: regular rate and rhythm, S1, S2 normal, no murmur, click, rub or gallop Abdomen: soft, non-tender. Bowel sounds normal. No masses, no organomegaly Extremities: extremities normal, atraumatic, no cyanosis or edema Pulses: 2+ and symmetric Skin: Skin color, texture, turgor normal. No rashes or lesions Neurologic: Grossly normal Last 24 Hour Vital Signs Date Time Temp Pulse Resp B/P (MAP) Pulse Ox O2 Delivery O2 Flow Rate FiO2 08/04/20 12:00 98.4 89 20 115/66 (82) 96 08/04/20 10:00 89 19 111/70 (84) 95 08/04/20 09:00 88 19 112/69 (83) 96 08/04/20 08:00 Room Air 08/04/20 08:00 98.2 89 21 90/62 (71) 98 08/04/20 07:52 89 08/04/20 07:00 87 19 110/61 (77) 94 08/04/20 06:00 93 25 102/52 (69) 99 08/04/20 05:00 91 20 103/58 (73) 98 08/04/20 04:24 90 08/04/20 04:00 98.0 90 21 110/65 (80) 98 08/04/20 04:00 Room Air 08/04/20 03:00 90 23 103/73 (83) 100 08/04/20 02:00 90 18 95/49 (64) 100 08/04/20 00:15 82 17 102/66 (78) 100 08/04/20 00:00 98.5 86 18 104/60 (75) 99 08/04/20 00:00 Room Air 08/03/20 23:45 86 15 99/54 (69) 99 08/03/20 23:34 90 08/03/20 23:30 86 15 81/62 (68) 99 08/03/20 23:15 86 13 93/54 (67) 98 08/03/20 23:00 82 17 90/44 (59) 98 08/03/20 22:45 84 17 85/55 (65) 100 08/03/20 22:30 81 19 78/44 (55) 100 08/03/20 22:15 76 16 82/42 (55) 100 08/03/20 22:00 83 16 79/48 (58) 08/03/20 21:45 86 17 99/64 (76) 08/03/20 21:30 79 14 88/46 (60) 08/03/20 21:15 84 16 81/57 (65) 08/03/20 21:00 81 10 89/48 (62) 08/03/20 20:45 82 08/03/20 20:00 Room Air 08/03/20 20:00 76 9 87/52 (64) 97 08/03/20 19:45 85 19 87/72 (77) 99 08/03/20 19:15 Room Air 08/03/20 19:00 84 19 94/54 (67) 100 08/03/20 18:59 98.5 87/59 (68) 08/03/20 18:44 98.6 80 16 94/50 99 Room Air 08/03/20 17:52 98.4 85 18 94/50 98 Room Air 08/03/20 15:10 98.4 92 18 102/65 98 Room Air 08/03/20 13:18 98.4 93 18 97/58 98 Room Air Intake and Output 08/03/20 08/04/20 19:00 07:00 Intake Total 0 ml 1395 ml Output Total 1250 ml Balance 0 ml 145 ml Intake Oral 0 ml 550 ml IV Total 845 ml Output Urine Total 1250 ml # Voids 1 # Bowel Movements 2 Laboratory Tests Test 08/03/20 14:35 08/03/20 18:07 08/03/20 22:15 08/04/20 02:06 Lactic Acid Level 1.50 mmol/L (0.66-2.22) POC Whole Blood Glucose 506 MG/DL (74-106) *H Pending White Blood Count 18.9 K/UL (4.8-10.8) H Red Blood Count 2.95 M/UL (4.20-5.40) L Hemoglobin 8.9 G/DL (12.0-16.0) L Hematocrit 25.5 % (37.0-47.0) L Mean Corpuscular Volume 87 FL (80-99) Mean Corpuscular Hemoglobin 30.1 PG (27.0-31.0) Mean Corpuscular Hemoglobin Concent 34.8 G/DL (32.0-36.0) Red Cell Distribution Width 12.7 % (11.6-14.8) Platelet Count 109 K/UL (150-450) L Mean Platelet Volume 11.8 FL (6.5-10.1) H Neutrophils (%) (Auto) % (45.0-75.0) Lymphocytes (%) (Auto) % (20.0-45.0) Monocytes (%) (Auto) % (1.0-10.0) Eosinophils (%) (Auto) % (0.0-3.0) Basophils (%) (Auto) % (0.0-2.0) Differential Total Cells Counted 100 Neutrophils % (Manual) 86 % (45-75) H Lymphocytes % (Manual) 11 % (20-45) L Monocytes % (Manual) 3 % (1-10) Eosinophils % (Manual) 0 % (0-3) Basophils % (Manual) 0 % (0-2) Band Neutrophils 0 % (0-8) Platelet Estimate Decreased L Platelet Morphology Normal Sodium Level 132 MMOL/L (136-145) L Potassium Level 3.9 MMOL/L (3.5-5.1) Chloride Level 99 MMOL/L (98-107) Carbon Dioxide Level 22 MMOL/L (21-32) Anion Gap 11 mmol/L (5-15) Blood Urea Nitrogen 34 mg/dL (7-18) H Creatinine 1.8 MG/DL (0.55-1.30) H Estimat Glomerular Filtration Rate 29.1 mL/min (>60) Glucose Level 446 MG/DL (74-106) #H Calcium Level 7.1 MG/DL (8.5-10.1) L Total Bilirubin 0.9 MG/DL (0.2-1.0) Aspartate Amino Transf (AST/SGOT) 36 U/L (15-37) Alanine Aminotransferase (ALT/SGPT) 40 U/L (12-78) Alkaline Phosphatase 205 U/L (46-116) H Total Protein 5.7 G/DL (6.4-8.2) L Albumin 1.9 G/DL (3.4-5.0) L Globulin 3.8 g/dL Albumin/Globulin Ratio 0.5 (1.0-2.7) L Thyroid Stimulating Hormone (TSH) 3.652 uiU/mL (0.358-3.740) Test 08/04/20 04:00 08/04/20 06:27 White Blood Count 20.4 K/UL (4.8-10.8) H Red Blood Count 3.27 M/UL (4.20-5.40) L Hemoglobin 10.0 G/DL (12.0-16.0) L Hematocrit 27.8 % (37.0-47.0) L Mean Corpuscular Volume 85 FL (80-99) Mean Corpuscular Hemoglobin 30.5 PG (27.0-31.0) Mean Corpuscular Hemoglobin Concent 35.9 G/DL (32.0-36.0) Red Cell Distribution Width 13.5 % (11.6-14.8) Platelet Count 124 K/UL (150-450) L Mean Platelet Volume 12.2 FL (6.5-10.1) H Neutrophils (%) (Auto) % (45.0-75.0) Lymphocytes (%) (Auto) % (20.0-45.0) Monocytes (%) (Auto) % (1.0-10.0) Eosinophils (%) (Auto) % (0.0-3.0) Basophils (%) (Auto) % (0.0-2.0) Differential Total Cells Counted 100 Neutrophils % (Manual) 81 % (45-75) H Lymphocytes % (Manual) 4 % (20-45) L Monocytes % (Manual) 6 % (1-10) Eosinophils % (Manual) 0 % (0-3) Basophils % (Manual) 0 % (0-2) Band Neutrophils 9 % (0-8) H Platelet Estimate Decreased L Platelet Morphology Normal Hypochromasia 1+ Sodium Level 132 MMOL/L (136-145) L Potassium Level 3.6 MMOL/L (3.5-5.1) Chloride Level 99 MMOL/L (98-107) Carbon Dioxide Level 22 MMOL/L (21-32) Blood Urea Nitrogen 36 mg/dL (7-18) H Creatinine 1.6 MG/DL (0.55-1.30) H Estimat Glomerular Filtration Rate 33.3 mL/min (>60) Glucose Level 357 MG/DL (74-106) H Calcium Level 7.6 MG/DL (8.5-10.1) L Phosphorus Level 3.0 MG/DL (2.5-4.9) Magnesium Level 1.8 MG/DL (1.8-2.4) Total Bilirubin 0.9 MG/DL (0.2-1.0) Aspartate Amino Transf (AST/SGOT) 33 U/L (15-37) Alanine Aminotransferase (ALT/SGPT) 44 U/L (12-78) Alkaline Phosphatase 228 U/L (46-116) H Troponin I 0.018 ng/mL (0.000-0.056) Total Protein 6.0 G/DL (6.4-8.2) L Albumin 2.0 G/DL (3.4-5.0) L Globulin 4.0 g/dL Albumin/Globulin Ratio 0.5 (1.0-2.7) L Triglycerides Level 228 MG/DL (30-150) H Cholesterol Level 150 MG/DL (< 200) LDL Cholesterol 58 mg/dL (<100) HDL Cholesterol 18 MG/DL (40-60) L Cholesterol/HDL Ratio 8.3 (3.3-4.4) H Random Vancomycin Level 13.9 ug/mL Acetone Level Negative (NEGATIVE) POC Whole Blood Glucose Pending Height (Feet): 5 Height (Inches): 4.00 Weight (Pounds): 200 Medications Current Medications Medications (Trade) Dose Ordered Sig/Irene Route PRN Reason Start Time Stop Time Status Last Admin Dose Admin Acetaminophen (Tylenol) 650 mg Q4H PRN ORAL Mild Pain (Pain Scale 1-3) 08/03/20 20:15 09/02/20 20:14 Cefepime HCl 500 mg/Sodium Chloride 55 ml @ 110 mls/hr Q24H IV 08/04/20 09:00 08/11/20 08:59 08/04/20 08:52 Chlorhexidine Gluconate (Jie-Hex 2%) 1 applic DAILY@2000 TOPIC 08/03/20 20:00 11/01/20 19:59 08/03/20 20:00 Dextrose (Dextrose 50%) 25 ml Q30M PRN IV Hypoglycemia 08/03/20 20:00 11/01/20 19:59 Dextrose (Dextrose 50%) 50 ml Q30M PRN IV Hypoglycemia 08/03/20 20:00 11/01/20 19:59 Docusate Sodium (Colace) 250 mg DAILY ORAL 08/04/20 09:00 09/03/20 08:59 Heparin Sodium (Porcine) (Heparin 5000 units/ml) 5,000 units EVERY 12 HOURS SUBQ 08/03/20 21:00 09/17/20 20:59 08/04/20 08:53 Insulin Aspart (NovoLOG) BEFORE MEALS AND HS SUBQ 08/03/20 21:00 11/01/20 20:59 08/04/20 12:20 Insulin Detemir (Levemir) 10 units BEDTIME SUBQ 08/03/20 21:00 11/01/20 20:59 08/03/20 21:34 Insulin Detemir (Levemir) 14 units BEFORE LUNCH SUBQ 08/04/20 11:30 11/02/20 11:29 08/04/20 12:18 Magnesium Hydroxide (Mom) 30 ml DAILYPRN PRN ORAL Constipation 08/03/20 20:15 09/02/20 20:14 Sodium Chloride 1,000 ml @ 100 mls/hr Q10H IV 08/03/20 21:00 09/02/20 20:59 08/04/20 06:26 Assessment/Plan Problem List: (1) Hyperglycemia ICD Codes: R73.9 - Hyperglycemia, unspecified SNOMED: 65625583 (2) Hyponatremia ICD Codes: E87.1 - Hypo-osmolality and hyponatremia SNOMED: 07283221 (3) Leukocytosis Assessment & Plan: elevated lft's on abx as per ID micro noted no abscess or external infection mri noted cont current care no acute surgical intervention planned ICD Codes: D72.829 - Elevated white blood cell count, unspecified SNOMED: 074235039, 402996915 (4) UTI (urinary tract infection) ICD Codes: N39.0 - Urinary tract infection, site not specified SNOMED: 38056373, 410077220 (5) Sepsis Assessment & Plan: No abnormal areas of restricted diffusion to suggest acute infarction. No acute hemorrhage or edema. No mass effect nor midline shift. There is a equivocal mild pachymeningeal enhancement, most notable in the tentorium and to a slight extent over the convexities. No parenchymal enhancement.. Normal size ventricles and extra axial CSF spaces. There is ethmoid sinus disease. The visualized orbits are unremarkable.. There is a small amount of fluid within the right mastoid air cells. . 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 Significance uncertain, possible differential considerations include infection, intracranial hypotension, idiopathic pachymeningitis Otherwise unremarkable exam. No evidence of infarct, intracranial bleed, or significant parenchymal enhancement. No mass effect. Sinus and right mastoid disease incidentally noted ICD Codes: A41.9 - Sepsis, unspecified organism SNOMED: 55420329, 775427956 Taiwo Sherman Aug 04, 2020 12:47
--- NOTE | 2020-08-04 13:27 | NUR ---
GRAPHIC ARTS TECHNICIAN NOTE SW spoke w/ pt's daughter, Amy Weaver [phone] that pt resides w/ her and pt does not have AD/POA at this time. SW explained the AD/POA process to the daughter. The daughter is willing to parts picker the POA/AD resource when pt discharges.
--- NOTE | 2020-08-04 16:14 | NUR ---
CASE MANAGEMENT:REVIEW BIBA FROM HOME SI: SEPSIS. HYPERGLYCEMIA. HYPONATREMIA UTI. LEUKOCYTOSIS 98.5 88 18 94/50 98% ON RA WBC+30.1 GLUCOSE+667 IS: 1L NS BOLUS IV VANCOMYCIN IV CEFEPIME IV INSULIN MRI BRAIN AND SPINE PICC LINE PLACEMENT CT HEAD : TO ICU
--- NOTE | 2020-08-04 18:52 | NUR ---
NURSE HAND-OFF REPORT: Important Events on Shift:transferred from ICU earlier in the shift Patient Status: always asleep and arousable Diet: ccho medium Pending Orders: n/a Pending Results/Labs:n/a Pending MD notification:n/a Latest Vital Signs: Temperature 98.0 , Pulse 96 , B/P 129 /72 , Respiratory Rate 18 , O2 SAT 95 , Room Air, O2 Flow Rate . Vital Sign Comment: stable EKG Rhythm: Sinus Rhythm Rhythm change?: N MD Notified?: - MD Response: Latest Hickey Fall Score: 60 Fall Risk: High Risk Safety Measures: Call light Within Reach, Bed Alarm Zone 2, Side Rails Side Rails x2, Bed position Low and Locked. Fall Precautions: Yellow Socks Yellow Gown Door Sign Patient Fall Education Report given to .
--- NOTE | 2020-08-04 19:20 | NUR ---
NURSE NOTES: Important Events on Shift: Received report from Eddie Shetty RN. Pt stable throughout shift. Patient Status: stable Diet: cardiac soft easy chew Pending Orders: none Pending Results/Labs: none Pending MD notification: none Latest Vital Signs: Temperature 98.1 , Pulse 86 , B/P 146 /83 , Respiratory Rate 18 , O2 SAT 94 , Room Air, O2 Flow Rate . Vital Sign Comment: EKG Rhythm: Sinus Rhythm Rhythm change?: N MD Notified?: - MD Response: Latest Hickey Fall Score: 60 Fall Risk: High Risk Safety Measures: Call light Within Reach, Bed Alarm Zone 2, Side Rails Side Rails x2, Bed position Low and Locked. Fall Precautions: YES Yellow Socks YES Yellow Gown YES Door Sign YES Patient Fall Education YES
--- NOTE | 2020-08-04 19:40 | NUR ---
HAND-OFF: Report given to SHAHZAD.
--- NOTE | 2020-08-04 21:10 | Cardiology Progress Note ---
Subjective DATE OF SERVICE: Aug 04, 2020 Hypotensive most of the night, but responded ultimately to aggressive IV fluid management, without pressors. Still c/o leg pains and weakness. Spine x-rays were unremarkable Blood ketones have resolved. HbA1c above 11 as expected. Objective Last 24 Hour Vital Signs Date Time Temp Pulse Resp B/P (MAP) Pulse Ox O2 Delivery O2 Flow Rate FiO2 08/04/20 16:00 96 08/04/20 16:00 98.0 90 18 129/72 (91) 95 08/04/20 12:00 98.4 89 20 115/66 (82) 96 08/04/20 12:00 86 08/04/20 10:00 89 19 111/70 (84) 95 08/04/20 09:00 88 19 112/69 (83) 96 08/04/20 08:00 Room Air 08/04/20 08:00 98.2 89 21 90/62 (71) 98 08/04/20 07:52 89 08/04/20 07:00 87 19 110/61 (77) 94 08/04/20 06:00 93 25 102/52 (69) 99 08/04/20 05:00 91 20 103/58 (73) 98 08/04/20 04:24 90 08/04/20 04:00 98.0 90 21 110/65 (80) 98 08/04/20 04:00 Room Air 08/04/20 03:00 90 23 103/73 (83) 100 08/04/20 02:00 90 18 95/49 (64) 100 08/04/20 00:15 82 17 102/66 (78) 100 08/04/20 00:00 98.5 86 18 104/60 (75) 99 08/04/20 00:00 Room Air 08/03/20 23:45 86 15 99/54 (69) 99 08/03/20 23:34 90 08/03/20 23:30 86 15 81/62 (68) 99 08/03/20 23:15 86 13 93/54 (67) 98 08/03/20 23:00 82 17 90/44 (59) 98 08/03/20 22:45 84 17 85/55 (65) 100 08/03/20 22:30 81 19 78/44 (55) 100 08/03/20 22:15 76 16 82/42 (55) 100 08/03/20 22:00 83 16 79/48 (58) 08/03/20 21:45 86 17 99/64 (76) 08/03/20 21:30 79 14 88/46 (60) 08/03/20 21:15 84 16 81/57 (65) 08/03/20 21:00 81 10 89/48 (62) ROS: no change from 08/03/20. HEENT: normal ENT inspection RHYTHM: NSR, ST LUNGS: lungs clear bilaterally CARDIAC: normal rate, regular rhythm, normal S1 and S2, gallop/S4 ABDOMEN: normal bowel sounds, non tender, soft, no organomegaly EXTREMITIES: normal range of motion - passive normal - symmetric, normal inspection, no calf tenderness, no swelling Laboratory Tests Test 08/03/20 22:15 08/04/20 02:06 08/04/20 04:00 08/04/20 06:27 White Blood Count 18.9 K/UL (4.8-10.8) H 20.4 K/UL (4.8-10.8) H Red Blood Count 2.95 M/UL (4.20-5.40) L 3.27 M/UL (4.20-5.40) L Hemoglobin 8.9 G/DL (12.0-16.0) L 10.0 G/DL (12.0-16.0) L Hematocrit 25.5 % (37.0-47.0) L 27.8 % (37.0-47.0) L Mean Corpuscular Volume 87 FL (80-99) 85 FL (80-99) Mean Corpuscular Hemoglobin 30.1 PG (27.0-31.0) 30.5 PG (27.0-31.0) Mean Corpuscular Hemoglobin Concent 34.8 G/DL (32.0-36.0) 35.9 G/DL (32.0-36.0) Red Cell Distribution Width 12.7 % (11.6-14.8) 13.5 % (11.6-14.8) Platelet Count 109 K/UL (150-450) L 124 K/UL (150-450) L Mean Platelet Volume 11.8 FL (6.5-10.1) H 12.2 FL (6.5-10.1) H Neutrophils (%) (Auto) % (45.0-75.0) % (45.0-75.0) Lymphocytes (%) (Auto) % (20.0-45.0) % (20.0-45.0) Monocytes (%) (Auto) % (1.0-10.0) % (1.0-10.0) Eosinophils (%) (Auto) % (0.0-3.0) % (0.0-3.0) Basophils (%) (Auto) % (0.0-2.0) % (0.0-2.0) Differential Total Cells Counted 100 100 Neutrophils % (Manual) 86 % (45-75) H 81 % (45-75) H Lymphocytes % (Manual) 11 % (20-45) L 4 % (20-45) L Monocytes % (Manual) 3 % (1-10) 6 % (1-10) Eosinophils % (Manual) 0 % (0-3) 0 % (0-3) Basophils % (Manual) 0 % (0-2) 0 % (0-2) Band Neutrophils 0 % (0-8) 9 % (0-8) H Platelet Estimate Decreased L Decreased L Platelet Morphology Normal Normal Sodium Level 132 MMOL/L (136-145) L 132 MMOL/L (136-145) L Potassium Level 3.9 MMOL/L (3.5-5.1) 3.6 MMOL/L (3.5-5.1) Chloride Level 99 MMOL/L (98-107) 99 MMOL/L (98-107) Carbon Dioxide Level 22 MMOL/L (21-32) 22 MMOL/L (21-32) Anion Gap 11 mmol/L (5-15) Blood Urea Nitrogen 34 mg/dL (7-18) H 36 mg/dL (7-18) H Creatinine 1.8 MG/DL (0.55-1.30) H 1.6 MG/DL (0.55-1.30) H Estimat Glomerular Filtration Rate 29.1 mL/min (>60) 33.3 mL/min (>60) Glucose Level 446 MG/DL (74-106) #H 357 MG/DL (74-106) H Calcium Level 7.1 MG/DL (8.5-10.1) L 7.6 MG/DL (8.5-10.1) L Total Bilirubin 0.9 MG/DL (0.2-1.0) 0.9 MG/DL (0.2-1.0) Aspartate Amino Transf (AST/SGOT) 36 U/L (15-37) 33 U/L (15-37) Alanine Aminotransferase (ALT/SGPT) 40 U/L (12-78) 44 U/L (12-78) Alkaline Phosphatase 205 U/L (46-116) H 228 U/L (46-116) H Total Protein 5.7 G/DL (6.4-8.2) L 6.0 G/DL (6.4-8.2) L Albumin 1.9 G/DL (3.4-5.0) L 2.0 G/DL (3.4-5.0) L Globulin 3.8 g/dL 4.0 g/dL Albumin/Globulin Ratio 0.5 (1.0-2.7) L 0.5 (1.0-2.7) L Thyroid Stimulating Hormone (TSH) 3.652 uiU/mL (0.358-3.740) POC Whole Blood Glucose Pending Pending Hypochromasia 1+ Phosphorus Level 3.0 MG/DL (2.5-4.9) Magnesium Level 1.8 MG/DL (1.8-2.4) Troponin I 0.018 ng/mL (0.000-0.056) Triglycerides Level 228 MG/DL (30-150) H Cholesterol Level 150 MG/DL (< 200) LDL Cholesterol 58 mg/dL (<100) HDL Cholesterol 18 MG/DL (40-60) L Cholesterol/HDL Ratio 8.3 (3.3-4.4) H Random Vancomycin Level 13.9 ug/mL Acetone Level Negative (NEGATIVE) Test 08/04/20 16:44 POC Whole Blood Glucose Pending Microbiology Date/Time Source Procedure Growth Status 08/03/20 12:43 Rectum Received 08/03/20 12:42 Nasal Nares - Final Complete 08/03/20 12:42 Nasal Nares - Final Complete 08/03/20 12:04 Nasopharynx SARS-CoV-2 RdRp Gene Assay - Final Complete 08/03/20 11:50 Urine,Clean Catch Urine Culture - Preliminary Gram Negative Tray Resulted Assessment/Plan Assessment/Plan Sepsis due to UTI Hypovolemia Shock Ac renal failure DKA resolved NIDDM - uncontrolled Leukocytosis Elevated sed rate Severe protein/calorie malnutrition Adjust IVF Abx PT eval Will adjust insulin Await cultures Will address other therapies for DM when more stable. [place] MD Aug 04, 2020 21:10
[2020-08-04] MEDS: Dyna-Hex 2% Top Sol 2oz TOPIC SCH (22:37)
[2020-08-04] MEDS: Levemir Flexpen SUBQ SCH (22:57)
[2020-08-05] VITALS: BP 138/81
[2020-08-05 04:00] VITALS: BP 146/83
[2020-08-05] MEDS: NovoLOG Insulin Flexpen SUBQ SCH ×4 (06:37→21:28)
[2020-08-05 06:42] LABS: EOSINOPHILS % (AUTO) 2.2 % (0.0-3.0); HEMATOCRIT 29.2 % (37.0-47.0); HEMOGLOBIN 10.1 G/DL (12.0-16.0); LYMPHOCYTES % (AUTO) 13.3 % (20.0-45.0); MEAN CORPUSCULAR VOLUME 87 FL (80-99); MONOCYTES % (AUTO) 5.9 % (1.0-10.0); NEUTROPHILS % (AUTO) 77.6 % (45.0-75.0); PLATELET COUNT 131 K/UL (150-450); RED BLOOD COUNT 3.37 M/UL (4.20-5.40); RED CELL DISTRIBUTION WIDTH 12.5 % (11.6-14.8); WHITE BLOOD COUNT 14.2 K/UL (4.8-10.8)
[2020-08-05 06:50] LABS: INR 0.9 (0.9-1.1)
[2020-08-05 07:09] LABS: ALBUMIN 1.9 G/DL (3.4-5.0); ALBUMIN/GLOBULIN RATIO 0.4 (1.0-2.7); BILIRUBIN,TOTAL 1.4 MG/DL (0.2-1.0); CALCIUM 8.1 MG/DL (8.5-10.1); POTASSIUM 3.7 MMOL/L (3.5-5.1)
[2020-08-05 07:18] LABS: BILIRUBIN,DIRECT 0.7 MG/DL (0.0-0.3)
--- NOTE | 2020-08-05 07:22 | NUR ---
NURSE HAND-OFF REPORT: Important Events on Shift: None Patient Status: stable throughout shift Diet: Pending Orders: none Pending Results/Labs: none Pending MD notification: none Latest Vital Signs: Temperature 98.1 , Pulse 86 , B/P 146 /83 , Respiratory Rate 18 , O2 SAT 94 , Room Air, O2 Flow Rate . Vital Sign Comment: EKG Rhythm: Sinus Rhythm Rhythm change?: N MD Notified?: - MD Response: Latest Hickey Fall Score: 60 Fall Risk: High Risk Safety Measures: Call light Within Reach, Bed Alarm Zone 2, Side Rails Side Rails x2, Bed position Low and Locked. Fall Precautions: YES Yellow Socks YES Yellow Gown YES Door Sign YES Patient Fall Education YES Report given to Gume Moya RN
--- NOTE | 2020-08-05 07:26 | NUR ---
NURSE NOTES: Pt. received from SOHEILA Mercado. Pt. asleep at this time, breathing even and unlabored on room air, no indications of respiratory distress, no indications of pain. Left upper arm PICC noted, CDI, left AC IV noted. Bed low and locked, side rails x3 up, bed alarm active, and call light in reach.
[2020-08-05 08:00] VITALS: BP 143/83
[2020-08-05] MEDS: Cefepime HCl 500 MG in NS 55 ML IV SCH (08:48)
[2020-08-05] MEDS: Docusate 250mg cap ORAL SCH (08:48)
[2020-08-05] MEDS: Heparin 5000 units/ml inj SUBQ SCH ×2 (08:51→21:12)
--- NOTE | 2020-08-05 10:26 | NUR ---
P.T Note: P.T evaluation completed and tx initiated. Please refer to P.T evaluation for current functional status. Pt is alert, O x 4 , pleasant and cooperative. Pt denied c/o pain but feeling discomfort from telemetry wires and feeling generally weak and fatigue. Pt currently requires MIN A X 1 for bed mobilities and transfers activities: c/o dizziness upon initial standing resulting to LOB however subsided over time. Pt was able to ambulate and tolerate distance of 75 ft with gait being unsteady due to above reasons: needed the FWW and CGA X 1 to maintain ambulatory balance. Pt requested to get back to bed VS chair due to c/o feeling fatigue. Educated pt on importance of OOB activities as tolerated VS bedrest especially during meals. Pt verbalized understanding. Conferred with RN. Pt will be seen for skilled P.T to increase activity tolerance , strength and mobility independence to facilitate return to PLOF. Pt is cleared for OOB activities with nursing assist. DME: would benefit from FWW.
--- NOTE | 2020-08-05 11:00 | NUR ---
NURSE NOTES: Spoke with pt.s daughter regarding pt. status, daughter requested to speak with primary. Endorsed to primary and provided with family member's contact information.
--- NOTE | 2020-08-05 11:07 | Cardiology Progress Note ---
Subjective DATE OF SERVICE: Aug 05, 2020 BP remains stable Patient was able to ambulate with assist Spine x-rays were unremarkable Blood ketones have resolved. HbA1c above 11 as expected. I spoke to daughter [phone]. She says that patient has always refused medx therapy at home. She understands need now for compliance and will assist. Objective Last 24 Hour Vital Signs Date Time Temp Pulse Resp B/P (MAP) Pulse Ox O2 Delivery O2 Flow Rate FiO2 08/05/20 08:00 85 08/05/20 08:00 97.5 92 20 143/83 (103) 95 08/05/20 04:00 98.1 86 18 146/83 (104) 94 08/05/20 04:00 84 08/05/20 00:00 83 08/05/20 00:00 97.6 85 18 138/81 (100) 93 08/04/20 23:09 98.0 08/04/20 20:00 97.9 91 18 142/82 (102) 95 08/04/20 20:00 95 08/04/20 16:00 96 08/04/20 16:00 98.0 90 18 129/72 (91) 95 08/04/20 12:00 98.4 89 20 115/66 (82) 96 08/04/20 12:00 86 ROS: no change from 08/03/20. HEENT: normal ENT inspection RHYTHM: NSR, ST LUNGS: lungs clear bilaterally CARDIAC: normal rate, regular rhythm, normal S1 and S2, gallop/S4 ABDOMEN: normal bowel sounds, non tender, soft, no organomegaly EXTREMITIES: normal range of motion - passive normal - symmetric, normal inspection, no calf tenderness, no swelling Laboratory Tests Test 08/04/20 16:44 08/04/20 22:54 08/05/20 05:45 POC Whole Blood Glucose Pending Pending White Blood Count 14.2 K/UL (4.8-10.8) H Red Blood Count 3.37 M/UL (4.20-5.40) L Hemoglobin 10.1 G/DL (12.0-16.0) L Hematocrit 29.2 % (37.0-47.0) L Mean Corpuscular Volume 87 FL (80-99) Mean Corpuscular Hemoglobin 30.1 PG (27.0-31.0) Mean Corpuscular Hemoglobin Concent 34.7 G/DL (32.0-36.0) Red Cell Distribution Width 12.5 % (11.6-14.8) Platelet Count 131 K/UL (150-450) L Mean Platelet Volume 12.0 FL (6.5-10.1) H Neutrophils (%) (Auto) 77.6 % (45.0-75.0) H Lymphocytes (%) (Auto) 13.3 % (20.0-45.0) L Monocytes (%) (Auto) 5.9 % (1.0-10.0) Eosinophils (%) (Auto) 2.2 % (0.0-3.0) Basophils (%) (Auto) 1.0 % (0.0-2.0) Erythrocyte Sedimentation Rate 115 MM/HR (0-30) H Prothrombin Time 9.8 SEC (9.30-11.50) Prothromb Time International Ratio 0.9 (0.9-1.1) Activated Partial Thromboplast Time 26 SEC (23-33) Sodium Level 135 MMOL/L (136-145) L Potassium Level 3.7 MMOL/L (3.5-5.1) Chloride Level 104 MMOL/L (98-107) Carbon Dioxide Level 21 MMOL/L (21-32) Anion Gap 10 mmol/L (5-15) Blood Urea Nitrogen 32 mg/dL (7-18) H Creatinine 1.0 MG/DL (0.55-1.30) Estimat Glomerular Filtration Rate 57.4 mL/min (>60) Glucose Level 209 MG/DL (74-106) #H Lactic Acid Level 0.90 mmol/L (0.4-2.0) Calcium Level 8.1 MG/DL (8.5-10.1) L Total Bilirubin 1.4 MG/DL (0.2-1.0) H Direct Bilirubin 0.7 MG/DL (0.0-0.3) H Aspartate Amino Transf (AST/SGOT) 49 U/L (15-37) H Alanine Aminotransferase (ALT/SGPT) 55 U/L (12-78) Alkaline Phosphatase 270 U/L (46-116) H C-Reactive Protein, Quantitative 23.5 mg/dL (0.00-0.90) H Total Protein 6.2 G/DL (6.4-8.2) L Albumin 1.9 G/DL (3.4-5.0) L Globulin 4.3 g/dL Albumin/Globulin Ratio 0.4 (1.0-2.7) L Amylase Level 22 U/L (25-115) L Lipase 86 U/L (73-393) Microbiology Date/Time Source Procedure Growth Status 08/03/20 12:43 Rectum - Final NO CARBAPENEM-RESISTANT ENTEROBACTERI... Complete 08/03/20 12:43 Rectum VRE Culture - Final NO VANCOMYCIN RESISTANT ENTEROCOCCUS ... Complete 08/03/20 12:43 Nasal Nares MRSA Culture - Final NO METHICILLIN RESISTANT STAPH AUREUS... Complete 08/03/20 12:42 Nasal Nares - Final Complete 08/03/20 12:42 Nasal Nares - Final Complete 08/03/20 12:04 Nasopharynx SARS-CoV-2 RdRp Gene Assay - Final Complete 08/03/20 11:50 Urine,Clean Catch Urine Culture - Final Escherichia Coli Complete Assessment/Plan Assessment/Plan Sepsis due to UTI Hypovolemia correcting Shock resolved Ac renal failure recovering DKA resolved NIDDM - uncontrolled Leukocytosis Elevated sed rate Severe protein/calorie malnutrition Adjust IVF Abx PT for mobility Will adjust insulin further Will add other therapies for DM now (ACEi and statin). DC monitor [place] MD Aug 05, 2020 11:07
--- NOTE | 2020-08-05 11:14 | Infectious Diseases Prog Note ---
Assessment/Plan Assessment/Plan antibiotics : cefepime A 1. e.coli UTI 2. diabetes mellitus 3. CHF 4. renal failure 5. leucocytosis improving P 1. d/c cefepime 2. start and continue ceftriaxone 4 more days 3. will follow up cultures Subjective Constitutional: Denies: fever, chills Respiratory: Denies: shortness of breath, dry cough Gastrointestinal/Abdominal: Denies: nausea, vomiting Musculoskeletal: Denies: pain Allergies: Coded Allergies: No Known Allergies (Unverified , 08/03/20) Objective Last 24 Hour Vital Signs Date Time Temp Pulse Resp B/P (MAP) Pulse Ox O2 Delivery O2 Flow Rate FiO2 08/05/20 08:00 85 08/05/20 08:00 97.5 92 20 143/83 (103) 95 08/05/20 04:00 98.1 86 18 146/83 (104) 94 08/05/20 04:00 84 08/05/20 00:00 83 08/05/20 00:00 97.6 85 18 138/81 (100) 93 08/04/20 23:09 98.0 08/04/20 20:00 97.9 91 18 142/82 (102) 95 08/04/20 20:00 95 08/04/20 16:00 96 08/04/20 16:00 98.0 90 18 129/72 (91) 95 08/04/20 12:00 98.4 89 20 115/66 (82) 96 08/04/20 12:00 86 Height (Feet): 5 Height (Inches): 4.00 Weight (Pounds): 200 Respiratory/Chest: lungs clear Cardiovascular: normal rate, regular rhythm, no gallop/murmur Abdomen: soft, non tender Extremities: no edema, other - left arm PICC Microbiology Date/Time Source Procedure Growth Status 08/03/20 12:43 Rectum - Final NO CARBAPENEM-RESISTANT ENTEROBACTERI... Complete 08/03/20 12:43 Rectum VRE Culture - Final NO VANCOMYCIN RESISTANT ENTEROCOCCUS ... Complete 08/03/20 12:43 Nasal Nares MRSA Culture - Final NO METHICILLIN RESISTANT STAPH AUREUS... Complete 08/03/20 12:42 Nasal Nares - Final Complete 08/03/20 12:42 Nasal Nares - Final Complete 08/03/20 12:04 Nasopharynx SARS-CoV-2 RdRp Gene Assay - Final Complete 08/03/20 11:50 Urine,Clean Catch Urine Culture - Final Escherichia Coli Complete Laboratory Tests Test 08/04/20 16:44 08/04/20 22:54 08/05/20 05:45 POC Whole Blood Glucose Pending Pending White Blood Count 14.2 K/UL (4.8-10.8) H Red Blood Count 3.37 M/UL (4.20-5.40) L Hemoglobin 10.1 G/DL (12.0-16.0) L Hematocrit 29.2 % (37.0-47.0) L Mean Corpuscular Volume 87 FL (80-99) Mean Corpuscular Hemoglobin 30.1 PG (27.0-31.0) Mean Corpuscular Hemoglobin Concent 34.7 G/DL (32.0-36.0) Red Cell Distribution Width 12.5 % (11.6-14.8) Platelet Count 131 K/UL (150-450) L Mean Platelet Volume 12.0 FL (6.5-10.1) H Neutrophils (%) (Auto) 77.6 % (45.0-75.0) H Lymphocytes (%) (Auto) 13.3 % (20.0-45.0) L Monocytes (%) (Auto) 5.9 % (1.0-10.0) Eosinophils (%) (Auto) 2.2 % (0.0-3.0) Basophils (%) (Auto) 1.0 % (0.0-2.0) Erythrocyte Sedimentation Rate 115 MM/HR (0-30) H Prothrombin Time 9.8 SEC (9.30-11.50) Prothromb Time International Ratio 0.9 (0.9-1.1) Activated Partial Thromboplast Time 26 SEC (23-33) Sodium Level 135 MMOL/L (136-145) L Potassium Level 3.7 MMOL/L (3.5-5.1) Chloride Level 104 MMOL/L (98-107) Carbon Dioxide Level 21 MMOL/L (21-32) Anion Gap 10 mmol/L (5-15) Blood Urea Nitrogen 32 mg/dL (7-18) H Creatinine 1.0 MG/DL (0.55-1.30) Estimat Glomerular Filtration Rate 57.4 mL/min (>60) Glucose Level 209 MG/DL (74-106) #H Lactic Acid Level 0.90 mmol/L (0.4-2.0) Calcium Level 8.1 MG/DL (8.5-10.1) L Total Bilirubin 1.4 MG/DL (0.2-1.0) H Direct Bilirubin 0.7 MG/DL (0.0-0.3) H Aspartate Amino Transf (AST/SGOT) 49 U/L (15-37) H Alanine Aminotransferase (ALT/SGPT) 55 U/L (12-78) Alkaline Phosphatase 270 U/L (46-116) H C-Reactive Protein, Quantitative 23.5 mg/dL (0.00-0.90) H Total Protein 6.2 G/DL (6.4-8.2) L Albumin 1.9 G/DL (3.4-5.0) L Globulin 4.3 g/dL Albumin/Globulin Ratio 0.4 (1.0-2.7) L Amylase Level 22 U/L (25-115) L Lipase 86 U/L (73-393) Current Medications Medications (Trade) Dose Ordered Sig/Irene Route PRN Reason Start Time Stop Time Status Last Admin Dose Admin Acetaminophen (Tylenol) 650 mg Q4H PRN ORAL Mild Pain (Pain Scale 1-3) 08/03/20 20:15 09/02/20 20:14 08/04/20 22:39 Cefepime HCl 500 mg/Sodium Chloride 55 ml @ 110 mls/hr Q24H IV 08/04/20 09:00 08/11/20 08:59 08/05/20 08:48 Chlorhexidine Gluconate (Jie-Hex 2%) 1 applic DAILY@2000 TOPIC 08/03/20 20:00 11/01/20 19:59 08/04/20 22:37 Dextrose (Dextrose 50%) 25 ml Q30M PRN IV Hypoglycemia 08/03/20 20:00 11/01/20 19:59 Dextrose (Dextrose 50%) 50 ml Q30M PRN IV Hypoglycemia 08/03/20 20:00 11/01/20 19:59 Docusate Sodium (Colace) 250 mg DAILY ORAL 08/04/20 09:00 09/03/20 08:59 08/05/20 08:48 Heparin Sodium (Porcine) (Heparin 5000 units/ml) 5,000 units EVERY 12 HOURS SUBQ 08/03/20 21:00 09/17/20 20:59 08/04/20 08:53 Insulin Aspart (NovoLOG) BEFORE MEALS AND HS SUBQ 08/03/20 21:00 11/01/20 20:59 08/05/20 06:37 Insulin Detemir (Levemir) 12 units BEDTIME SUBQ 08/05/20 21:00 11/03/20 20:59 UNV Insulin Detemir (Levemir) 16 units BEFORE LUNCH SUBQ 08/05/20 11:30 11/03/20 11:29 UNV Lisinopril (ZestriL) 5 mg DAILY ORAL 08/05/20 11:00 09/04/20 10:59 UNV Magnesium Hydroxide (Mom) 30 ml DAILYPRN PRN ORAL Constipation 08/03/20 20:15 09/02/20 20:14 Pravastatin Sodium (Pravachol) 10 mg BEDTIME ORAL 08/05/20 21:00 09/04/20 20:59 UNV Sodium Chloride 1,000 ml @ 40 mls/hr Q24H IV 08/03/20 21:00 09/02/20 20:59 08/05/20 03:10 Derrick Nunez MD Aug 05, 2020 11:14
[2020-08-05] MEDS ORDERED: cefTRIAXone 1 GM in D5W 55 ML IVPB SCH (11:30)
[2020-08-05] MEDS: Levemir Flexpen SUBQ SCH (11:52)
[2020-08-05] MEDS: Lisinopril 2.5mg tab ORAL SCH (11:53)
[2020-08-05 12:00] VITALS: BP 144/79
--- NOTE | 2020-08-05 12:40 | NUR ---
NURSE NOTES: Pt. transferred to 3E to SOHEILA Bridges and SOHEILA Kat. Pt. AAOx4, breathing even and unlabored on room air, no indications of chest pain and no indications of respiratory distress. VS stable, belongings sent with pt. Endorsed plan of care.
--- NOTE | 2020-08-05 12:52 | NUR ---
CASE MANAGEMENT:REVIEW 08/05/20 SI :SEPSIS D/T UTI 97.5 92 20 143/83 95% ON RA BUN+32 GLUCOSE+209 CA-8.1 IS: IV ROCEPHIN Q24 LEVEMIR SQ QHS AND BEFORE LUNCH LISINOPRIL PO QD IV@40/HR HEPARIN SQ Q12 INSULIN SQ AC+HS : MED/SURG STATUS 3 EAST DCP: FROM HOME PLAN: ONCE CLEARED FOR DISCHARGE PATIENT WILL NEED HOME HEALTH FOR PT, NURSE VISITS AND MEDICATION COMPLIANCE INSULIN WILL BE A NEW MEDICATION FOR PATIENT SOCIAL SERVICE CONSULT
--- NOTE | 2020-08-05 13:42 | NUR ---
NURSE NOTES: Called and notified Dr. Camp that PICC lumen is not flushing, received order to d/c PICC line and maintain peripheral IV access. Will carry out order.
--- NOTE | 2020-08-05 13:50 | Diagnostic Imaging Report ---
Indication: Reason For Exam: DVT Technique: Grayscale and duplex images of the bilateral lower extremity veins Comparison: None Findings: Bilaterally, grayscale and duplex images demonstrate no evidence of intraluminal thrombus. Normal phasic Doppler waveforms, demonstrating normal augmentation response and no evidence of valvular insufficiency. Greater saphenous vein(s) and tibial veins are patent. Normal compressibility. Impression: Negative for evidence of lower extremity deep venous thrombosis bilaterally
--- NOTE | 2020-08-05 14:17 | NUR ---
SILVERWARE ETCHER NOTE SW spoke w/ pts daughter, Ms. Weaver [phone] that she resides w/ pt, she will assist w/ medication and monitor the compliance. SW met w/ pt and encouraged medication compliance upon DC. SUZANNA provided the AD/POA resource to pt.
--- NOTE | 2020-08-05 14:24 | NUR ---
NURSE NOTES: BERNIE PICC removed per MD order, patient tolerated well, no bleeding noted. RFA IV 22g inserted, IV is patent, running IV fluids per order.
[2020-08-05 16:00] VITALS: BP 141/82
--- NOTE | 2020-08-05 16:13 | Surgery Progress Note ---
Surgery Progress Note Subjective Symptoms: improved, pain absent Additional Comments feels much better no n/v comfortable picc being removed peripheral ine insertion Objective Last 24 Hour Vital Signs Date Time Temp Pulse Resp B/P (MAP) Pulse Ox O2 Delivery O2 Flow Rate FiO2 08/05/20 12:00 97.7 94 18 144/79 (100) 96 08/05/20 12:00 94 08/05/20 11:53 144/79 08/05/20 09:00 Room Air 08/05/20 08:00 85 08/05/20 08:00 97.5 92 20 143/83 (103) 95 08/05/20 04:00 98.1 86 18 146/83 (104) 94 08/05/20 04:00 84 08/05/20 00:00 83 08/05/20 00:00 97.6 85 18 138/81 (100) 93 08/04/20 23:09 98.0 08/04/20 20:00 97.9 91 18 142/82 (102) 95 08/04/20 20:00 95 I&O Intake and Output 08/04/20 08/05/20 19:00 07:00 Intake Total 575 ml Output Total 400 ml 800 ml Balance 175 ml -800 ml Intake Oral 120 ml IV Total 455 ml Output Urine Total 400 ml 800 ml Dressing: saturated Cardiovascular: RSR Respiratory: decreased breath sounds Abdomen: non-tender, present bowel sounds Extremities: edema, no tenderness, no cyanosis Laboratory Tests Test 08/04/20 16:44 08/04/20 22:54 08/05/20 05:45 POC Whole Blood Glucose Pending Pending White Blood Count 14.2 K/UL (4.8-10.8) H Red Blood Count 3.37 M/UL (4.20-5.40) L Hemoglobin 10.1 G/DL (12.0-16.0) L Hematocrit 29.2 % (37.0-47.0) L Mean Corpuscular Volume 87 FL (80-99) Mean Corpuscular Hemoglobin 30.1 PG (27.0-31.0) Mean Corpuscular Hemoglobin Concent 34.7 G/DL (32.0-36.0) Red Cell Distribution Width 12.5 % (11.6-14.8) Platelet Count 131 K/UL (150-450) L Mean Platelet Volume 12.0 FL (6.5-10.1) H Neutrophils (%) (Auto) 77.6 % (45.0-75.0) H Lymphocytes (%) (Auto) 13.3 % (20.0-45.0) L Monocytes (%) (Auto) 5.9 % (1.0-10.0) Eosinophils (%) (Auto) 2.2 % (0.0-3.0) Basophils (%) (Auto) 1.0 % (0.0-2.0) Erythrocyte Sedimentation Rate 115 MM/HR (0-30) H Prothrombin Time 9.8 SEC (9.30-11.50) Prothromb Time International Ratio 0.9 (0.9-1.1) Activated Partial Thromboplast Time 26 SEC (23-33) Sodium Level 135 MMOL/L (136-145) L Potassium Level 3.7 MMOL/L (3.5-5.1) Chloride Level 104 MMOL/L (98-107) Carbon Dioxide Level 21 MMOL/L (21-32) Anion Gap 10 mmol/L (5-15) Blood Urea Nitrogen 32 mg/dL (7-18) H Creatinine 1.0 MG/DL (0.55-1.30) Estimat Glomerular Filtration Rate 57.4 mL/min (>60) Glucose Level 209 MG/DL (74-106) #H Lactic Acid Level 0.90 mmol/L (0.4-2.0) Calcium Level 8.1 MG/DL (8.5-10.1) L Total Bilirubin 1.4 MG/DL (0.2-1.0) H Direct Bilirubin 0.7 MG/DL (0.0-0.3) H Aspartate Amino Transf (AST/SGOT) 49 U/L (15-37) H Alanine Aminotransferase (ALT/SGPT) 55 U/L (12-78) Alkaline Phosphatase 270 U/L (46-116) H C-Reactive Protein, Quantitative 23.5 mg/dL (0.00-0.90) H Total Protein 6.2 G/DL (6.4-8.2) L Albumin 1.9 G/DL (3.4-5.0) L Globulin 4.3 g/dL Albumin/Globulin Ratio 0.4 (1.0-2.7) L Amylase Level 22 U/L (25-115) L Lipase 86 U/L (73-393) Plan Problems: (1) Hyperglycemia (2) Hyponatremia (3) Leukocytosis Assessment & Plan: elevated lft's on abx as per ID micro noted no abscess or external infection mri noted cont current care no acute surgical intervention planned (4) UTI (urinary tract infection) (5) Sepsis Assessment & Plan: No abnormal areas of restricted diffusion to suggest acute infarction. No acute hemorrhage or edema. No mass effect nor midline shift. There is a equivocal mild pachymeningeal enhancement, most notable in the tentorium and to a slight extent over the convexities. No parenchymal enhancement.. Normal size ventricles and extra axial CSF spaces. There is ethmoid sinus disease. The visualized orbits are unremarkable.. There is a small amount of fluid within the right mastoid air cells. . 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 Significance uncertain, possible differential considerations include infection, intracranial hypotension, idiopathic pachymeningitis Otherwise unremarkable exam. No evidence of infarct, intracranial bleed, or significant parenchymal enhancement. No mass effect. Sinus and right mastoid disease incidentally noted Taiwo Sherman Aug 05, 2020 16:13
--- NOTE | 2020-08-05 17:52 | NUR ---
NURSE NOTES: Pt arrived from telemetry, got report from SOHEILA Melgoza. PICC line in place. Pt belongings accounted for. Hillman catheter is draining to gravity. Addendum: 08/05/20 at 1754 by [place] RN NURSE NOTES: Edit: Pt arrived to unit at 12:30
--- NOTE | 2020-08-05 19:29 | NUR ---
NURSE HAND-OFF: Important Events on Shift: Transferred from [facility], PICC removed Patient Status: stable Diet: CCHO Pending Orders: N/A Pending Results/Labs:N/A Pending MD notification: N/A Latest Vital Signs: Temperature 98.2 , Pulse 98 , B/P 141 /82 , Respiratory Rate 18 , O2 SAT 94 , Room Air. Vital Sign Comment: VS stable Latest Hickey Fall Score: 45 Fall Risk: High Risk Safety Measures: Call light Within Reach, Bed Alarm Zone 1, Side Rails Side Rails x2, Bed position Low and Locked. Fall Precautions: Yellow Socks Door Sign Patient Fall Education Report given to Vanita PARNELL.
--- NOTE | 2020-08-05 19:30 | NUR ---
NURSE NOTES: Received report from SOHEILA Kat/SOHEILA Bridges. Rounds done. Patient alert, oriented, sitting up in bed. PICC was discontinued. IV access on RFA, #22, running IVF NS at 40 cc/hr. Patient denies any pain at this time. Hillman catheter intact and patent. Patient communicating well in [place] with nurse. Denies any needs at this time. Discussed plan of care with patient. Patient states she has not been taking diabetes medications at home but plans to do so after discharge. States has not been eating much because she doesn't like the food that was sent. [facility], encouraged to make choices so that we can send to Dietary prior to breakfast tomorrow. Patient verbalizes understanding. Bed in low position, locked, side rails up x2, call light within reach. Encouraged to call as needed. Will continue to monitor.
[2020-08-05 20:00] VITALS: BP 132/80
[2020-08-05] MEDS: Dyna-Hex 2% Top Sol 2oz TOPIC SCH (20:00)
[2020-08-05] MEDS ORDERED: Levemir Flexpen SUBQ SCH (21:00)
[2020-08-06] VITALS (8 sets, daily range): BP systolic 134–167; BP diastolic 79–95
[2020-08-06] MEDS: NovoLOG Insulin Flexpen SUBQ SCH ×4 (06:30→20:56)
--- NOTE | 2020-08-06 07:16 | NUR ---
NURSE HAND-OFF: Important Events on Shift: this AM blood sugar was 77 mg/dl, patient had juice, states she doesn't like food, was given menu but hasn't filled out, offered sandwich for last night snack but patient refused, no dizziness, no nausea, no sweating, no headache, patient alert and oriented x4. Patient Status: []stable Diet: []ccho med Pending Orders: [] Pending Results/Labs:[] Pending MD notification:[] Latest Vital Signs: Temperature 99.6 , Pulse 84 , B/P 134 /82 , Respiratory Rate 20 , O2 SAT 96 , Room Air, O2 Flow Rate . Vital Sign Comment: [] Latest Hickey Fall Score: 45 Fall Risk: High Risk Safety Measures: Call light Within Reach, Bed Alarm Zone 1, Side Rails Side Rails x2, Bed position Low and Locked. Fall Precautions: Yellow Socks Door Sign Patient Fall Education Report given to SOHEILA Alva
--- NOTE | 2020-08-06 07:27 | NUR ---
NURSE NOTES: Report received from Vanita PARNELL, rounds made. Patient Korean speaking, understands South Korean. AOx4, calm. Denies SOB, pain, NV. IV NS at 40 ml/hr to RFA, site asymptomatic. FC in place, draining y/cl urine to gravity, will replace anchor. No diarrhea at this time time. Call light in reach, bed in lowest position, will continue to monitor.
[2020-08-06] MEDS: Docusate 250mg cap ORAL SCH ×2 (09:00→09:04)
[2020-08-06] MEDS: Heparin 5000 units/ml inj SUBQ SCH ×2 (09:07→21:00)
[2020-08-06] MEDS: Lisinopril 2.5mg tab ORAL SCH (09:08)
--- NOTE | 2020-08-06 09:40 | NUR ---
NURSE NOTES: Patient had diarrheal BM, Keli held this AM. Dr. Sherman notified during rounds, orders for stool for CDIFF, will obtain as ordered.
--- NOTE | 2020-08-06 11:17 | Infectious Diseases Prog Note ---
Assessment/Plan Assessment/Plan antibiotics : ceftriaxone A 1. e.coli UTI 2. diabetes mellitus 3. CHF 4. renal failure 5. leucocytosis improving P 1. d/c ceftriaxone 2. start and continue po keflex 3 more days 3. will follow up cultures 4. okay for discharge from ID perspective Subjective Constitutional: Denies: fever, chills Respiratory: Denies: shortness of breath, dry cough Gastrointestinal/Abdominal: Denies: nausea, vomiting, diarrhea Musculoskeletal: Denies: pain Allergies: Coded Allergies: No Known Allergies (Unverified , 08/03/20) Objective Last 24 Hour Vital Signs Date Time Temp Pulse Resp B/P (MAP) Pulse Ox O2 Delivery O2 Flow Rate FiO2 08/06/20 09:08 137/80 08/06/20 08:00 98.8 97 17 137/80 (99) 96 08/06/20 04:00 99.6 84 20 134/82 (99) 96 08/06/20 00:00 98.9 92 18 136/81 (99) 95 08/05/20 21:00 Room Air 08/05/20 20:00 97.4 94 18 132/80 (97) 96 08/05/20 16:00 98.2 98 18 141/82 (101) 94 08/05/20 12:00 97.7 94 18 144/79 (100) 96 08/05/20 12:00 94 08/05/20 11:53 144/79 Height (Feet): 5 Height (Inches): 4.00 Weight (Pounds): 200 Respiratory/Chest: lungs clear Cardiovascular: normal rate, regular rhythm, no gallop/murmur Abdomen: soft, non tender Extremities: no edema Microbiology Date/Time Source Procedure Growth Status 08/03/20 12:43 Rectum - Final NO CARBAPENEM-RESISTANT ENTEROBACTERI... Complete 08/03/20 12:43 Rectum VRE Culture - Final NO VANCOMYCIN RESISTANT ENTEROCOCCUS ... Complete 08/03/20 12:43 Nasal Nares MRSA Culture - Final NO METHICILLIN RESISTANT STAPH AUREUS... Complete 08/03/20 12:42 Nasal Nares - Final Complete 08/03/20 12:42 Nasal Nares - Final Complete 08/03/20 12:04 Nasopharynx SARS-CoV-2 RdRp Gene Assay - Final Complete 08/03/20 11:50 Urine,Clean Catch Urine Culture - Final Escherichia Coli Complete Laboratory Tests Test 08/05/20 16:54 08/05/20 21:20 08/06/20 05:57 POC Whole Blood Glucose Pending Pending 77 MG/DL (74-106) Current Medications Medications (Trade) Dose Ordered Sig/Irene Route PRN Reason Start Time Stop Time Status Last Admin Dose Admin Acetaminophen (Tylenol) 650 mg Q4H PRN ORAL Mild Pain (Pain Scale 1-3) 08/03/20 20:15 09/02/20 20:14 08/04/20 22:39 Ceftriaxone Sodium 1 gm/ Dextrose 55 ml @ 110 mls/hr Q24H IVPB 08/05/20 11:30 08/12/20 11:29 08/05/20 11:50 Chlorhexidine Gluconate (Jie-Hex 2%) 1 applic DAILY@2000 TOPIC 08/03/20 20:00 11/01/20 19:59 08/04/20 22:37 Dextrose (Dextrose 50%) 25 ml Q30M PRN IV Hypoglycemia 08/03/20 20:00 11/01/20 19:59 Dextrose (Dextrose 50%) 50 ml Q30M PRN IV Hypoglycemia 08/03/20 20:00 11/01/20 19:59 Docusate Sodium (Colace) 250 mg DAILY ORAL 08/04/20 09:00 09/03/20 08:59 08/05/20 08:48 Heparin Sodium (Porcine) (Heparin 5000 units/ml) 5,000 units EVERY 12 HOURS SUBQ 08/03/20 21:00 09/17/20 20:59 08/06/20 09:07 Insulin Aspart (NovoLOG) BEFORE MEALS AND HS SUBQ 08/03/20 21:00 11/01/20 20:59 08/05/20 21:28 Insulin Detemir (Levemir) 12 units BEDTIME SUBQ 08/05/20 21:00 11/03/20 20:59 08/05/20 21:29 Insulin Detemir (Levemir) 16 units BEFORE LUNCH SUBQ 08/05/20 11:30 11/03/20 11:29 08/05/20 11:52 Lisinopril (ZestriL) 5 mg DAILY ORAL 08/05/20 11:30 09/04/20 11:29 08/06/20 09:08 Magnesium Hydroxide (Mom) 30 ml DAILYPRN PRN ORAL Constipation 08/03/20 20:15 09/02/20 20:14 Pravastatin Sodium (Pravachol) 10 mg BEDTIME ORAL 08/05/20 21:00 09/04/20 20:59 08/05/20 21:07 Sodium Chloride 1,000 ml @ 40 mls/hr Q24H IV 08/03/20 21:00 09/02/20 20:59 08/05/20 21:08 Derrick Nunez MD Aug 06, 2020 11:17
--- NOTE | 2020-08-06 11:30 | NUR ---
NURSE NOTES: Dr. Camp notified of BP 164/95 and 166/89, patient asymptomatic, no pain/headache, eMAR reviewed, orders received for Hydralazine 10 mg Q4H PRN SBP above 150 and Zestril increased from 5mg PO daily to 10 mg. Will follow as ordered.
[2020-08-06] MEDS: Levemir Flexpen SUBQ SCH ×2 (11:36→21:00)
[2020-08-06] MEDS ORDERED: HydrALAZINE 10mg Tab ORAL PRN (11:45)
--- NOTE | 2020-08-06 13:09 | NUR ---
CASE MANAGEMENT:REVIEW SI;SEPSIS D/T UTI 99.6 97 20 164/95 95% ON RA NO LABS AVAILABLE IS;INSULIN NOVOLOG SQ QID HEPARIN SQ Q12 ZESTRIL PO QD KEFLEX PO QID MED SURG STATUS DCP;PATIENT IS FROM HOME PLAN; STOOL COLLECTED TO R/O C-DIFF D/T DIARRHEA
[2020-08-06] MEDS: Cephalexin 500mg cap ORAL SCH ×3 (13:26→20:57)
--- NOTE | 2020-08-06 16:20 | NUR ---
NURSE NOTES: Dr. Camp notified of BP 162/88 after Hydralazine administered at 1330, orders to increase to 25 mg Q4H PRN , starting now, will follow as ordered.
[2020-08-06] MEDS: HydrALAZINE 25mg tab ORAL PRN (17:00)
--- NOTE | 2020-08-06 19:30 | NUR ---
NURSE HAND-OFF: Important Events on Shift:Rocephin DC, Started Keflex, Diarrhea x1, CDIFF needs to be collected, BP elevated (started on Hydralazine PRN and Zestril dose increased), Levemir dose decreased by 1 unit for HS dose Patient Status: stable Diet: CCHO med Pending Orders: CDIFF specimen Pending Results/Labs:none Pending MD notification:none Latest Vital Signs: Temperature 98.4 , Pulse 92 , B/P 140 /79 , Respiratory Rate 18 , O2 SAT 96 , Room Air, O2 Flow Rate . Vital Sign Comment: Monitor BP Latest Hickey Fall Score: 45 Fall Risk: High Risk Safety Measures: Call light Within Reach, Bed Alarm Zone 1, Side Rails Side Rails x2, Bed position Low and Locked. Fall Precautions: Yellow Socks Door Sign Patient Fall Education Report given to Chaparrita PARNELL.
[2020-08-06] MEDS: Dyna-Hex 2% Top Sol 2oz TOPIC SCH (20:00)
--- NOTE | 2020-08-06 20:46 | NUR ---
NURSES NOTE: Report received from SOHEILA Alva. Rounds made. Pt in bed, A/OX4, Maltese speaker but is able to understand simple questions and respond appropriately. Pt denies discomfort or pain at this time. No outward s/s of distress noted. Breathing pattern is even and unlabored on RA. Hillman in place draining to gravity. IV in place, patent, infusing IVF without incident. All due medications will be administered. Bed at lowest level. Call light within reach. Pt will continue to be monitored.
--- NOTE | 2020-08-06 23:07 | Surgery Progress Note ---
Surgery Progress Note Subjective Symptoms: improved, pain absent, tolerating diet, passing flatus Objective Last 24 Hour Vital Signs Date Time Temp Pulse Resp B/P (MAP) Pulse Ox O2 Delivery O2 Flow Rate FiO2 08/06/20 18:55 92 140/79 (99) 08/06/20 17:00 162/88 08/06/20 16:00 98.4 96 18 162/88 (112) 96 08/06/20 13:31 167/92 08/06/20 13:30 96 167/92 (117) 08/06/20 12:00 97.7 92 18 164/95 (118) 96 08/06/20 09:08 137/80 08/06/20 09:00 Room Air 08/06/20 08:00 98.8 97 17 137/80 (99) 96 08/06/20 04:00 99.6 84 20 134/82 (99) 96 08/06/20 00:00 98.9 92 18 136/81 (99) 95 I&O Intake and Output 08/05/20 08/06/20 19:00 07:00 Intake Total 1370 ml 665 ml Output Total 950 ml 775 ml Balance 420 ml -110 ml Intake Oral 500 ml 625 ml IV Total 870 ml 40 ml Output Urine Total 950 ml 775 ml # Bowel Movements 1 Cardiovascular: RSR Respiratory: decreased breath sounds Abdomen: non-tender, present bowel sounds, non-distended Extremities: no edema, no tenderness, no cyanosis Laboratory Tests Test 08/06/20 05:57 08/06/20 11:35 08/06/20 16:09 08/06/20 20:56 POC Whole Blood Glucose 77 MG/DL (74-106) 149 MG/DL (74-106) H 128 MG/DL (74-106) H 137 MG/DL (74-106) H Plan Problems: (1) Hyperglycemia (2) Hyponatremia (3) Leukocytosis Assessment & Plan: elevated lft's on abx as per ID micro noted no abscess or external infection mri noted cont current care no acute surgical intervention planned (4) UTI (urinary tract infection) (5) Sepsis Assessment & Plan: No abnormal areas of restricted diffusion to suggest acute infarction. No acute hemorrhage or edema. No mass effect nor midline shift. There is a equivocal mild pachymeningeal enhancement, most notable in the tentorium and to a slight extent over the convexities. No parenchymal enhancement.. Normal size ventricles and extra axial CSF spaces. There is ethmoid sinus disease. The visualized orbits are unremarkable.. There is a small amount of fluid within the right mastoid air cells. . 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 Significance uncertain, possible differential considerations include infection, intracranial hypotension, idiopathic pachymeningitis Otherwise unremarkable exam. No evidence of infarct, intracranial bleed, or significant parenchymal enhancement. No mass effect. Sinus and right mastoid disease incidentally noted Taiwo Sherman Aug 06, 2020 23:07
[2020-08-07] VITALS: BP 129/69
[2020-08-07 04:00] VITALS: BP 139/73
[2020-08-07 06:04] LABS: BASOPHILS % (AUTO) 2.4 % (0.0-2.0); EOSINOPHILS % (AUTO) 2.9 % (0.0-3.0); HEMATOCRIT 28.1 % (37.0-47.0); HEMOGLOBIN 9.6 G/DL (12.0-16.0); LYMPHOCYTES % (AUTO) 24.6 % (20.0-45.0); MEAN CORPUSCULAR VOLUME 87 FL (80-99); MONOCYTES % (AUTO) 15.4 % (1.0-10.0); NEUTROPHILS % (AUTO) 54.7 % (45.0-75.0); PLATELET COUNT 150 K/UL (150-450); RED BLOOD COUNT 3.21 M/UL (4.20-5.40); WHITE BLOOD COUNT 8.8 K/UL (4.8-10.8)
[2020-08-07] MEDS: NovoLOG Insulin Flexpen SUBQ SCH ×4 (06:30→20:53)
[2020-08-07 06:48] LABS: ALANINE AMINOTRANSFERASE 38 U/L (12-78); ALBUMIN 1.8 G/DL (3.4-5.0); ALBUMIN/GLOBULIN RATIO 0.4 (1.0-2.7); ALKALINE PHOSPHATASE 411 U/L (46-116); ANION GAP 6 mmol/L (5-15); ASPARTATE AMINO TRANSFERASE 34 U/L (15-37); BILIRUBIN,TOTAL 1.8 MG/DL (0.2-1.0); BLOOD UREA NITROGEN 13 mg/dL (7-18); CARBON DIOXIDE 26 MMOL/L (21-32); CHLORIDE 106 MMOL/L (98-107); CREATININE 0.8 MG/DL (0.55-1.30); POTASSIUM 3.4 MMOL/L (3.5-5.1); SODIUM 138 MMOL/L (136-145)
--- NOTE | 2020-08-07 06:53 | NUR ---
NURSE HAND-OFF: Important Events on Shift:[MONITORED BP NOC SHIFT. BP WNL] Patient Status: [STABLE] Diet: [CCHO medium] Pending Orders: [NONE] Pending Results/Labs:[Chemistry panel still pending. Hgb 9.6 Hct 28.1] Pending MD notification:[NONE] Latest Vital Signs: Temperature 98.4 , Pulse 85 , B/P 139 /73 , Respiratory Rate 17 , O2 SAT 97 , Room Air, O2 Flow Rate . Vital Sign Comment: [WNL] Latest Hickey Fall Score: 45 Fall Risk: High Risk Safety Measures: Call light Within Reach, Bed Alarm Zone 1, Side Rails Side Rails x2, Bed position Low and Locked. Fall Precautions: Yellow Socks Door Sign Patient Fall Education Report given to [].
[2020-08-07 06:56] LABS: BILIRUBIN,DIRECT 1.1 MG/DL (0.0-0.3)
--- NOTE | 2020-08-07 07:19 | NUR ---
HAND OFF: Report given to SOHEILA Christie.
--- NOTE | 2020-08-07 07:35 | NUR ---
NURSE NOTES: Patient is in bed asleep. Stable. Breathing is even and unlabored. No visible signs of distress noted. Patient is in bed in locked and lowest position with call light within reach. All safety measures provided. Will continue to monitor.
[2020-08-07 08:00] VITALS: BP 130/66
[2020-08-07] MEDS: Heparin 5000 units/ml inj SUBQ SCH ×2 (08:20→20:48)
[2020-08-07] MEDS: Cephalexin 500mg cap ORAL SCH ×4 (08:23→20:46)
[2020-08-07] MEDS: Docusate 250mg cap ORAL SCH (08:23)
--- NOTE | 2020-08-07 08:29 | NUR ---
NURSE NOTES: f/c removed as ordered. Patient tolerated well, will monitor for UO.
[2020-08-07] MEDS ORDERED: Lisinopril 10mg tab ORAL SCH (09:00)
--- NOTE | 2020-08-07 10:30 | NUR ---
NURSE NOTES: Patient voided, no c/o burning, fullness, or discomfort. Will continue to monitor.
[2020-08-07] MEDS: Levemir Flexpen SUBQ SCH ×2 (11:55→20:51)
[2020-08-07 11:58] VITALS: BP 151/81
[2020-08-07] MEDS: HydrALAZINE 25mg tab ORAL PRN ×3 (12:02→21:24)
--- NOTE | 2020-08-07 14:58 | NUR ---
NURSE NOTES: Patient's IV is leaking, patient refused reinsertion of IV x2. Dr. Camp made aware. New orders to d/c IVF read back and entered.
[2020-08-07 16:00] VITALS: BP 170/94
--- NOTE | 2020-08-07 16:07 | Surgery Progress Note ---
Surgery Progress Note Subjective Additional Comments doing well no complaints no n/v/f/c comfortable resting tolerating diet Objective Last 24 Hour Vital Signs Date Time Temp Pulse Resp B/P (MAP) Pulse Ox O2 Delivery O2 Flow Rate FiO2 08/07/20 12:02 151/81 08/07/20 11:58 98.0 89 17 151/81 (104) 96 08/07/20 08:56 Room Air 08/07/20 08:24 130/66 08/07/20 08:00 98.1 84 17 130/66 (87) 96 08/07/20 04:00 98.4 85 17 139/73 (95) 97 08/07/20 00:00 99.6 83 18 129/69 (89) 94 08/06/20 21:00 Room Air 08/06/20 20:00 98.4 97 17 142/87 (105) 97 08/06/20 18:55 92 140/79 (99) 08/06/20 17:00 162/88 I&O Intake and Output 08/06/20 08/07/20 19:00 07:00 Intake Total 1840 ml 480 ml Output Total 1700 ml 1500 ml Balance 140 ml -1020 ml Intake Oral 1400 ml 480 ml IV Total 440 ml Output Urine Total 1700 ml 1500 ml # Bowel Movements 2 1 Cardiovascular: RSR Respiratory: decreased breath sounds Abdomen: non-tender, present bowel sounds Extremities: no edema, no tenderness, no cyanosis Laboratory Tests Test 08/06/20 16:09 08/06/20 20:56 08/07/20 04:50 08/07/20 05:49 POC Whole Blood Glucose 128 MG/DL (74-106) H 137 MG/DL (74-106) H 107 MG/DL (74-106) H White Blood Count 8.8 K/UL (4.8-10.8) Red Blood Count 3.21 M/UL (4.20-5.40) L Hemoglobin 9.6 G/DL (12.0-16.0) L Hematocrit 28.1 % (37.0-47.0) L Mean Corpuscular Volume 87 FL (80-99) Mean Corpuscular Hemoglobin 29.8 PG (27.0-31.0) Mean Corpuscular Hemoglobin Concent 34.1 G/DL (32.0-36.0) Red Cell Distribution Width 13.0 % (11.6-14.8) Platelet Count 150 K/UL (150-450) Mean Platelet Volume 8.9 FL (6.5-10.1) Neutrophils (%) (Auto) 54.7 % (45.0-75.0) Lymphocytes (%) (Auto) 24.6 % (20.0-45.0) Monocytes (%) (Auto) 15.4 % (1.0-10.0) H Eosinophils (%) (Auto) 2.9 % (0.0-3.0) Basophils (%) (Auto) 2.4 % (0.0-2.0) H Sodium Level 138 MMOL/L (136-145) Potassium Level 3.4 MMOL/L (3.5-5.1) L Chloride Level 106 MMOL/L (98-107) Carbon Dioxide Level 26 MMOL/L (21-32) Anion Gap 6 mmol/L (5-15) Blood Urea Nitrogen 13 mg/dL (7-18) Creatinine 0.8 MG/DL (0.55-1.30) Estimat Glomerular Filtration Rate > 60 mL/min (>60) Glucose Level 120 MG/DL (74-106) H Calcium Level 8.0 MG/DL (8.5-10.1) L Magnesium Level 2.0 MG/DL (1.8-2.4) Total Bilirubin 1.8 MG/DL (0.2-1.0) H Direct Bilirubin 1.1 MG/DL (0.0-0.3) H Aspartate Amino Transf (AST/SGOT) 34 U/L (15-37) Alanine Aminotransferase (ALT/SGPT) 38 U/L (12-78) Alkaline Phosphatase 411 U/L (46-116) H Total Protein 5.9 G/DL (6.4-8.2) L Albumin 1.8 G/DL (3.4-5.0) L Globulin 4.1 g/dL Albumin/Globulin Ratio 0.4 (1.0-2.7) L Plan Problems: (1) Hyperglycemia (2) Hyponatremia (3) Leukocytosis Assessment & Plan: elevated lft's on abx as per ID micro noted no abscess or external infection mri noted cont current care no acute surgical intervention planned (4) UTI (urinary tract infection) (5) Sepsis Assessment & Plan: No abnormal areas of restricted diffusion to suggest acute infarction. No acute hemorrhage or edema. No mass effect nor midline shift. There is a equivocal mild pachymeningeal enhancement, most notable in the tentorium and to a slight extent over the convexities. No parenchymal enhancement.. Normal size ventricles and extra axial CSF spaces. There is ethmoid sinus disease. The visualized orbits are unremarkable.. There is a small amount of fluid within the right mastoid air cells. . 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 Significance uncertain, possible differential considerations include infection, intracranial hypotension, idiopathic pachymeningitis Otherwise unremarkable exam. No evidence of infarct, intracranial bleed, or significant parenchymal enhancement. No mass effect. Sinus and right mastoid disease incidentally noted Taiwo Sherman Aug 07, 2020 16:07
--- NOTE | 2020-08-07 19:15 | NUR ---
NURSE HAND-OFF: Important Events on Shift: d/c kira Patient Status: stable Diet: ccho Pending Orders: n/a Pending Results/Labs:n/a Pending MD notification:n/a Latest Vital Signs: Temperature 97.8 , Pulse 95 , B/P 170 /94 , Respiratory Rate 17 , O2 SAT 95 , Room Air, O2 Flow Rate . Vital Sign Comment: n/a Latest Hickey Fall Score: 45 Fall Risk: High Risk Safety Measures: Call light Within Reach, Bed Alarm Zone 1, Side Rails Side Rails x2, Bed position Low and Locked. Fall Precautions: Yellow Socks Door Sign Patient Fall Education Report given to Chaparrita PARNELL.
--- NOTE | 2020-08-07 19:44 | NUR ---
NURSES NOTE: Report received from Shahnaz. Rounds made. Pt in bed, A/OX4, denies pain or discomfort at this time. No outward s/s of distress noted. Breathing pattern is even and unlabored on RA. Hillman D/C previous shift. Pt is voiding without issue on her own. No IV access. Dr aware. All due medications will be administered. Bed at lowest level. Jase light within reach. Pt will continue to be monitored.
[2020-08-07 20:00] VITALS: BP 174/98
[2020-08-07] MEDS: Dyna-Hex 2% Top Sol 2oz TOPIC SCH (20:00)
--- NOTE | 2020-08-07 23:53 | Cardiology Progress Note ---
Subjective DATE OF SERVICE: Aug 06, 2020 BP remains labile - frequent episodes with elevation. Patient was able to ambulate Spine x-rays were unremarkable Blood ketones have resolved. HbA1c above 11 as expected. I spoke to daughter [phone] on 08/05. She says that patient has always refused medx therapy at home. She understands need now for compliance and will assist. Objective 162/88 96 18 afebrile ROS: no change from 08/03/20. HEENT: normal ENT inspection RHYTHM: NSR, ST LUNGS: lungs clear bilaterally CARDIAC: normal rate, regular rhythm, normal S1 and S2, gallop/S4 ABDOMEN: normal bowel sounds, non tender, soft, no organomegaly EXTREMITIES: normal range of motion - passive normal - symmetric, normal inspection, no calf tenderness, no swelling none today Assessment/Plan Assessment/Plan Sepsis due to UTI Hypovolemia correcting Shock resolved Ac renal failure recovering DKA resolved NIDDM - uncontrolled Leukocytosis Elevated sed rate Severe protein/calorie malnutrition Hypertension/HHD with labile BP Adjust IVF Abx PT for mobility Will adjust insulin further Will add other therapies for DM now (ACEi and statin). Add antiHTN meds. North Camp MD Aug 07, 2020 23:53
[2020-08-08] VITALS: BP 147/71
--- NOTE | 2020-08-08 02:05 | Cardiology Progress Note ---
Subjective DATE OF SERVICE: Aug 07, 2020 BP remains labile - still has frequent episodes with elevation. Patient was able to ambulate Spine x-rays were unremarkable Blood ketones have resolved. HbA1c above 11 as expected. I spoke to daughter [phone] on 08/05. She says that patient has always refused medx therapy at home. She understands need now for compliance and will assist. Nursing staff instructing on insulin admin Objective Last 24 Hour Vital Signs Date Time Temp Pulse Resp B/P (MAP) Pulse Ox O2 Delivery O2 Flow Rate FiO2 08/08/20 00:00 98.3 92 17 147/71 (96) 96 08/07/20 21:24 172/90 08/07/20 21:00 Room Air 08/07/20 20:00 98.7 85 18 174/98 (123) 94 08/07/20 16:53 170/94 08/07/20 16:00 97.8 95 17 170/94 (119) 95 08/07/20 12:02 151/81 08/07/20 11:58 98.0 89 17 151/81 (104) 96 08/07/20 08:56 Room Air 08/07/20 08:24 130/66 08/07/20 08:00 98.1 84 17 130/66 (87) 96 08/07/20 04:00 98.4 85 17 139/73 (95) 97 ROS: no change from 08/03/20. HEENT: normal ENT inspection RHYTHM: NSR, ST LUNGS: lungs clear bilaterally CARDIAC: normal rate, regular rhythm, normal S1 and S2, gallop/S4 ABDOMEN: normal bowel sounds, non tender, soft, no organomegaly EXTREMITIES: normal range of motion - passive normal - symmetric, normal inspection, no calf tenderness, no swelling Laboratory Tests Test 08/07/20 04:50 08/07/20 05:49 08/07/20 11:54 08/07/20 16:49 White Blood Count 8.8 K/UL (4.8-10.8) Red Blood Count 3.21 M/UL (4.20-5.40) L Hemoglobin 9.6 G/DL (12.0-16.0) L Hematocrit 28.1 % (37.0-47.0) L Mean Corpuscular Volume 87 FL (80-99) Mean Corpuscular Hemoglobin 29.8 PG (27.0-31.0) Mean Corpuscular Hemoglobin Concent 34.1 G/DL (32.0-36.0) Red Cell Distribution Width 13.0 % (11.6-14.8) Platelet Count 150 K/UL (150-450) Mean Platelet Volume 8.9 FL (6.5-10.1) Neutrophils (%) (Auto) 54.7 % (45.0-75.0) Lymphocytes (%) (Auto) 24.6 % (20.0-45.0) Monocytes (%) (Auto) 15.4 % (1.0-10.0) H Eosinophils (%) (Auto) 2.9 % (0.0-3.0) Basophils (%) (Auto) 2.4 % (0.0-2.0) H Sodium Level 138 MMOL/L (136-145) Potassium Level 3.4 MMOL/L (3.5-5.1) L Chloride Level 106 MMOL/L (98-107) Carbon Dioxide Level 26 MMOL/L (21-32) Anion Gap 6 mmol/L (5-15) Blood Urea Nitrogen 13 mg/dL (7-18) Creatinine 0.8 MG/DL (0.55-1.30) Estimat Glomerular Filtration Rate > 60 mL/min (>60) Glucose Level 120 MG/DL (74-106) H Calcium Level 8.0 MG/DL (8.5-10.1) L Magnesium Level 2.0 MG/DL (1.8-2.4) Total Bilirubin 1.8 MG/DL (0.2-1.0) H Direct Bilirubin 1.1 MG/DL (0.0-0.3) H Aspartate Amino Transf (AST/SGOT) 34 U/L (15-37) Alanine Aminotransferase (ALT/SGPT) 38 U/L (12-78) Alkaline Phosphatase 411 U/L (46-116) H Total Protein 5.9 G/DL (6.4-8.2) L Albumin 1.8 G/DL (3.4-5.0) L Globulin 4.1 g/dL Albumin/Globulin Ratio 0.4 (1.0-2.7) L POC Whole Blood Glucose 107 MG/DL (74-106) H Pending Pending Test 08/07/20 20:43 POC Whole Blood Glucose 147 MG/DL (74-106) H Assessment/Plan Assessment/Plan Sepsis due to UTI Hypovolemia correcting Shock resolved Ac renal failure recovering DKA resolved NIDDM - uncontrolled Leukocytosis Elevated sed rate Severe protein/calorie malnutrition Hypertension/HHD with labile BP DC IVF Abx PT for mobility Will adjust insulin further Will add other therapies for DM now (ACEi and statin). Advance antiHTN meds further. North Camp MD Aug 08, 2020 02:05
[2020-08-08 04:00] VITALS: BP 154/86
[2020-08-08] MEDS: HydrALAZINE 25mg tab ORAL PRN ×2 (04:42→12:08)
[2020-08-08 05:54] LABS: BASOPHILS % (AUTO) 3.4 % (0.0-2.0); EOSINOPHILS % (AUTO) 3.5 % (0.0-3.0); HEMATOCRIT 29.7 % (37.0-47.0); HEMOGLOBIN 9.9 G/DL (12.0-16.0); LYMPHOCYTES % (AUTO) 25.6 % (20.0-45.0); MEAN CORPUSCULAR VOLUME 90 FL (80-99); MONOCYTES % (AUTO) 14.2 % (1.0-10.0); NEUTROPHILS % (AUTO) 53.4 % (45.0-75.0); PLATELET COUNT 193 K/UL (150-450); RED CELL DISTRIBUTION WIDTH 12.5 % (11.6-14.8); WHITE BLOOD COUNT 8.8 K/UL (4.8-10.8)
[2020-08-08] MEDS: NovoLOG Insulin Flexpen SUBQ SCH ×2 (06:22→12:04)
--- NOTE | 2020-08-08 06:26 | NUR ---
NURSE HAND-OFF: Important Events on Shift:[SBP ran in 170's range. Dr. Camp called. New order placed for additional AM BP meds by Conrado. BP controlled with Hydralazine 25mg Q4H PRN NOC shift] Patient Status: [STABLE] Diet: [CONSISTENT CARB] Pending Orders: [Possibe D/C] Pending Results/Labs:[BMP] Pending MD notification:[NONE CURRENTLY] Latest Vital Signs: Temperature 97.9 , Pulse 94 , B/P 154 /86 , Respiratory Rate 18 , O2 SAT 94 , Room Air, O2 Flow Rate . Vital Sign Comment: [BP High; Monitored NOC shift closely. All other VS WNL.] Latest Hickey Fall Score: 45 Fall Risk: High Risk Safety Measures: Call light Within Reach, Bed Alarm Zone 1, Side Rails Side Rails x2, Bed position Low and Locked. Fall Precautions: Yellow Socks Door Sign Patient Fall Education Report given to [].
[2020-08-08 06:28] LABS: ALANINE AMINOTRANSFERASE 41 U/L (12-78); ALBUMIN/GLOBULIN RATIO 0.5 (1.0-2.7); ALKALINE PHOSPHATASE 492 U/L (46-116); ANION GAP 4 mmol/L (5-15); ASPARTATE AMINO TRANSFERASE 34 U/L (15-37); BILIRUBIN,TOTAL 2.2 MG/DL (0.2-1.0); BLOOD UREA NITROGEN 11 mg/dL (7-18); CALCIUM 8.3 MG/DL (8.5-10.1); CARBON DIOXIDE 27 MMOL/L (21-32); CHLORIDE 107 MMOL/L (98-107); CREATININE 0.7 MG/DL (0.55-1.30); POTASSIUM 3.5 MMOL/L (3.5-5.1); SODIUM 138 MMOL/L (136-145)
[2020-08-08 06:33] LABS: BILIRUBIN,DIRECT 1.2 MG/DL (0.0-0.3)
--- NOTE | 2020-08-08 07:30 | NUR ---
NURSE NOTES: Patient is in bed awake and able to verbalize needs. Stable. Denies pain or SOB. Patient instructed to use call light for assistance, verbalized understanding. No visible signs of distress noted at this time. Patient is in bed in locked and lowest position with call light within reach. All needs met, all safety measures provided. Will continue to monitor.
[2020-08-08 08:00] VITALS: BP 127/74
[2020-08-08] MEDS: Heparin 5000 units/ml inj SUBQ SCH (08:47)
[2020-08-08] MEDS: Docusate 250mg cap ORAL SCH (08:47)
[2020-08-08] MEDS: Cephalexin 500mg cap ORAL SCH ×2 (08:48→12:08)
[2020-08-08] MEDS ORDERED: Lisinopril 20mg tab ORAL SCH (09:00)
[2020-08-08] MEDS ORDERED: PRINIVIL20 MG ORAL (11:15)
[2020-08-08] MEDS ORDERED: LANTUS SOL100 UNIT/1 SUBQ (11:15)
[2020-08-08] MEDS ORDERED: PRAVACHOL20 MG ORAL (11:15)
--- NOTE | 2020-08-08 11:30 | NUR ---
NURSE NOTES: Patient teaching given regarding insulin administration, diabetic diet, and accuchecks. Patient appears hesitant. Reinforcement needed. Patient's daughter made aware of diabetes management. Patient's daughter stated that she will monitor patient's blood sugar and medication administration.
--- NOTE | 2020-08-08 11:36 | Infectious Diseases Prog Note ---
Assessment/Plan Assessment/Plan antibiotics : po keflex A 1. e.coli UTI 2. diabetes mellitus 3. CHF 4. renal failure 5. leucocytosis improving P 1. continue po keflex 1 more day 2. will follow up cultures Subjective Constitutional: Denies: fever, chills Respiratory: Denies: shortness of breath, dry cough Gastrointestinal/Abdominal: Denies: nausea, vomiting, diarrhea Musculoskeletal: Denies: pain Allergies: Coded Allergies: No Known Allergies (Unverified , 08/03/20) Objective Last 24 Hour Vital Signs Date Time Temp Pulse Resp B/P (MAP) Pulse Ox O2 Delivery O2 Flow Rate FiO2 08/08/20 09:10 Room Air 08/08/20 08:48 127/74 08/08/20 08:00 98.9 90 18 127/74 (91) 95 08/08/20 04:42 154/86 08/08/20 04:00 97.9 94 18 154/86 (108) 94 08/08/20 00:00 98.3 92 17 147/71 (96) 96 08/07/20 21:24 172/90 08/07/20 21:00 Room Air 08/07/20 20:00 98.7 85 18 174/98 (123) 94 08/07/20 16:53 170/94 08/07/20 16:00 97.8 95 17 170/94 (119) 95 08/07/20 12:02 151/81 08/07/20 11:58 98.0 89 17 151/81 (104) 96 Height (Feet): 5 Height (Inches): 4.00 Weight (Pounds): 200 Respiratory/Chest: lungs clear Cardiovascular: normal rate, regular rhythm, no gallop/murmur Abdomen: soft, non tender Extremities: no edema Laboratory Tests Test 08/07/20 11:54 08/07/20 16:49 08/07/20 20:43 08/08/20 04:55 POC Whole Blood Glucose Pending Pending 147 MG/DL (74-106) H White Blood Count 8.8 K/UL (4.8-10.8) Red Blood Count 3.30 M/UL (4.20-5.40) L Hemoglobin 9.9 G/DL (12.0-16.0) L Hematocrit 29.7 % (37.0-47.0) L Mean Corpuscular Volume 90 FL (80-99) Mean Corpuscular Hemoglobin 30.1 PG (27.0-31.0) Mean Corpuscular Hemoglobin Concent 33.4 G/DL (32.0-36.0) Red Cell Distribution Width 12.5 % (11.6-14.8) Platelet Count 193 K/UL (150-450) Mean Platelet Volume 8.8 FL (6.5-10.1) Neutrophils (%) (Auto) 53.4 % (45.0-75.0) Lymphocytes (%) (Auto) 25.6 % (20.0-45.0) Monocytes (%) (Auto) 14.2 % (1.0-10.0) H Eosinophils (%) (Auto) 3.5 % (0.0-3.0) H Basophils (%) (Auto) 3.4 % (0.0-2.0) H Sodium Level 138 MMOL/L (136-145) Potassium Level 3.5 MMOL/L (3.5-5.1) Chloride Level 107 MMOL/L (98-107) Carbon Dioxide Level 27 MMOL/L (21-32) Anion Gap 4 mmol/L (5-15) L Blood Urea Nitrogen 11 mg/dL (7-18) Creatinine 0.7 MG/DL (0.55-1.30) Estimat Glomerular Filtration Rate > 60 mL/min (>60) Glucose Level 97 MG/DL (74-106) Calcium Level 8.3 MG/DL (8.5-10.1) L Total Bilirubin 2.2 MG/DL (0.2-1.0) H Direct Bilirubin 1.2 MG/DL (0.0-0.3) H Aspartate Amino Transf (AST/SGOT) 34 U/L (15-37) Alanine Aminotransferase (ALT/SGPT) 41 U/L (12-78) Alkaline Phosphatase 492 U/L (46-116) H Total Protein 6.3 G/DL (6.4-8.2) L Albumin 2.0 G/DL (3.4-5.0) L Globulin 4.3 g/dL Albumin/Globulin Ratio 0.5 (1.0-2.7) L Test 08/08/20 05:48 POC Whole Blood Glucose 85 MG/DL (74-106) Current Medications Medications (Trade) Dose Ordered Sig/Irene Route PRN Reason Start Time Stop Time Status Last Admin Dose Admin Acetaminophen (Tylenol) 650 mg Q4H PRN ORAL Mild Pain (Pain Scale 1-3) 08/03/20 20:15 09/02/20 20:14 08/04/20 22:39 Cephalexin (Keflex) 500 mg FOUR TIMES A DAY ORAL 08/06/20 13:00 08/09/20 09:01 08/08/20 08:48 Chlorhexidine Gluconate (Jie-Hex 2%) 1 applic DAILY@1999 TOPIC 08/03/20 20:00 11/01/20 19:59 08/04/20 22:37 Dextrose (Dextrose 50%) 25 ml Q30M PRN IV Hypoglycemia 08/03/20 20:00 11/01/20 19:59 Dextrose (Dextrose 50%) 50 ml Q30M PRN IV Hypoglycemia 08/03/20 20:00 11/01/20 19:59 Docusate Sodium (Colace) 250 mg DAILY ORAL 08/04/20 09:00 09/03/20 08:59 08/08/20 08:47 Heparin Sodium (Porcine) (Heparin 5000 units/ml) 5,000 units EVERY 12 HOURS SUBQ 08/03/20 21:00 09/17/20 20:59 08/08/20 08:47 Hydralazine HCl (Apresoline) 25 mg Q4H PRN ORAL SBP above 150 08/06/20 16:30 11/04/20 11:44 08/08/20 04:42 Insulin Aspart (NovoLOG) BEFORE MEALS AND HS SUBQ 08/03/20 21:00 11/01/20 20:59 08/07/20 20:53 Insulin Detemir (Levemir) 11 units BEDTIME SUBQ 08/06/20 21:00 11/03/20 20:59 08/07/20 20:51 Insulin Detemir (Levemir) 16 units BEFORE LUNCH SUBQ 08/05/20 11:30 11/03/20 11:29 08/07/20 11:55 Lisinopril (PriniviL) 40 mg DAILY ORAL 08/08/20 09:00 09/07/20 08:59 08/08/20 08:48 Magnesium Hydroxide (Mom) 30 ml DAILYPRN PRN ORAL Constipation 08/03/20 20:15 09/02/20 20:14 Pravastatin Sodium (Pravachol) 20 mg BEDTIME ORAL 08/08/20 21:00 09/07/20 20:59 Derrick Nunez MD Aug 08, 2020 11:36
[2020-08-08 12:00] VITALS: BP 155/85
[2020-08-08] MEDS: Levemir Flexpen SUBQ SCH (12:00)
[2020-08-08 12:08] VITALS: BP 155/85
--- NOTE | 2020-08-08 14:01 | NUR ---
NURSE NOTES: FWW at bedside.
--- NOTE | 2020-08-08 15:25 | NUR ---
NURSE NOTES: [place] [facility] [place] St[place]. Thorough discharge instructions given to patient, patient verbalized understanding. Patient has all belongings, prescription filled by [facility] pharmacy, medication with patient. Thorough medication teaching given to patient, written instructions also given to patient. Daughter also instructed about medications and monitoring at home. No IV access. Awaiting daughter to cook pickled meat patient.
--- NOTE | 2020-08-08 16:00 | NUR ---
NURSE NOTES: Patient assisted into daughter's car without incident. Skin is c/d/i. All belongings given to patient. All medications with patient. Medication teaching reinforcement given to daughter and patient. Patient and daughter verbalized understanding.
--- NOTE | 2020-08-08 16:58 | Surgery Progress Note ---
Surgery Progress Note Subjective Symptoms: improved, pain absent, tolerating diet, passing flatus, BM Objective Last 24 Hour Vital Signs Date Time Temp Pulse Resp B/P (MAP) Pulse Ox O2 Delivery O2 Flow Rate FiO2 08/08/20 12:08 155/85 08/08/20 12:00 97.6 92 18 155/85 (108) 96 08/08/20 09:10 Room Air 08/08/20 08:48 127/74 08/08/20 08:00 98.9 90 18 127/74 (91) 95 08/08/20 04:42 154/86 08/08/20 04:00 97.9 94 18 154/86 (108) 94 08/08/20 00:00 98.3 92 17 147/71 (96) 96 08/07/20 21:24 172/90 08/07/20 21:00 Room Air 08/07/20 20:00 98.7 85 18 174/98 (123) 94 I&O Intake and Output 08/07/20 08/08/20 19:00 07:00 Intake Total 240 ml Balance 240 ml Intake Oral 240 ml # Voids 1 Cardiovascular: RSR Respiratory: clear Abdomen: soft, non-tender, present bowel sounds, non-distended Extremities: no edema, no tenderness, no cyanosis Laboratory Tests Test 08/07/20 20:43 08/08/20 04:55 08/08/20 05:48 08/08/20 11:58 POC Whole Blood Glucose 147 MG/DL (74-106) H 85 MG/DL (74-106) Pending White Blood Count 8.8 K/UL (4.8-10.8) Red Blood Count 3.30 M/UL (4.20-5.40) L Hemoglobin 9.9 G/DL (12.0-16.0) L Hematocrit 29.7 % (37.0-47.0) L Mean Corpuscular Volume 90 FL (80-99) Mean Corpuscular Hemoglobin 30.1 PG (27.0-31.0) Mean Corpuscular Hemoglobin Concent 33.4 G/DL (32.0-36.0) Red Cell Distribution Width 12.5 % (11.6-14.8) Platelet Count 193 K/UL (150-450) Mean Platelet Volume 8.8 FL (6.5-10.1) Neutrophils (%) (Auto) 53.4 % (45.0-75.0) Lymphocytes (%) (Auto) 25.6 % (20.0-45.0) Monocytes (%) (Auto) 14.2 % (1.0-10.0) H Eosinophils (%) (Auto) 3.5 % (0.0-3.0) H Basophils (%) (Auto) 3.4 % (0.0-2.0) H Sodium Level 138 MMOL/L (136-145) Potassium Level 3.5 MMOL/L (3.5-5.1) Chloride Level 107 MMOL/L (98-107) Carbon Dioxide Level 27 MMOL/L (21-32) Anion Gap 4 mmol/L (5-15) L Blood Urea Nitrogen 11 mg/dL (7-18) Creatinine 0.7 MG/DL (0.55-1.30) Estimat Glomerular Filtration Rate > 60 mL/min (>60) Glucose Level 97 MG/DL (74-106) Calcium Level 8.3 MG/DL (8.5-10.1) L Total Bilirubin 2.2 MG/DL (0.2-1.0) H Direct Bilirubin 1.2 MG/DL (0.0-0.3) H Aspartate Amino Transf (AST/SGOT) 34 U/L (15-37) Alanine Aminotransferase (ALT/SGPT) 41 U/L (12-78) Alkaline Phosphatase 492 U/L (46-116) H Total Protein 6.3 G/DL (6.4-8.2) L Albumin 2.0 G/DL (3.4-5.0) L Globulin 4.3 g/dL Albumin/Globulin Ratio 0.5 (1.0-2.7) L Plan Problems: (1) Hyperglycemia (2) Hyponatremia (3) Leukocytosis Assessment & Plan: elevated lft's on abx as per ID micro noted no abscess or external infection mri noted cont current care no acute surgical intervention planned (4) UTI (urinary tract infection) (5) Sepsis Assessment & Plan: No abnormal areas of restricted diffusion to suggest acute infarction. No acute hemorrhage or edema. No mass effect nor midline shift. There is a equivocal mild pachymeningeal enhancement, most notable in the tentorium and to a slight extent over the convexities. No parenchymal enhancement.. Normal size ventricles and extra axial CSF spaces. There is ethmoid sinus disease. The visualized orbits are unremarkable.. There is a small amount of fluid within the right mastoid air cells. . 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 Significance uncertain, possible differential considerations include infection, intracranial hypotension, idiopathic pachymeningitis Otherwise unremarkable exam. No evidence of infarct, intracranial bleed, or significant parenchymal enhancement. No mass effect. Sinus and right mastoid disease incidentally noted Additional Comments d/c with walker outpatient f/u pt/ot Taiwo Sherman Aug 08, 2020 16:58
--- NOTE | 2020-08-08 17:06 | NUR ---
*-*DISCHARGE PLANNING*-* PATIENT HAS BEEN REFERRED TO: [address] [place] [address] P: [phone] NO ANSWER [facility] P: [phone] S/W BENJAMIN, WILL CALL BACK AFTER REVIEW [facility] P: [phone] S/W [facility] CANNOT SERVICE THIS PATIENT DUE TO INSURANCE. 25/03 [facility] P: [phone] S/W DOMINICK, NOT IN OFFICE AT THE MOMENT, CALL BACK TOMORROW. [facility] P: [phone] S/W JESUS, NOT ABLE TO TALK RIGHT NOW, FOLLOW UP IN THE MORNING.
--- NOTE | 2020-08-09 13:46 | NUR ---
INSURANCE CLINICALS FAXED TO (08/07-08/08) [facility] T: [phone] F: [phone]
--- NOTE | 2020-08-10 13:11 | Discharge Summary ---
Discharge Summary Discharge Summary _ DATE OF ADMISSION: 08/03/2020 DATE OF DISCHARGE: 08/08/2020 DISCHARGED BY: REASON FOR ADMISSION: 55 years old female with past medical history of diabetes, noncompliant with her medication, obesity, was brought by paramedics from home due to generalized weakness for the past several day. Patient reported fever at home but was afebrile per paramedics. Patient reported feeling dizzy and weak but no focal weakness. Patient reported that she was unable to get out of the bed due to her weakness. Patient complain of paresthesias in her bilateral feet and hands. She denied chest pain or shortness of breath. She denies abdominal pain dysuria diarrhea. Paramedics patient received normal saline by paramedics prior to arrival. Her blood sugar on glucometer was reading high over 400. Upon evaluation vital signs were stable. Laboratory work-up revealed WBC 30.1, hemoglobin 11.4 hematocrit 34.5 platelet count 143. A ESR 93. Sodium 126 potassium 4.8 BUN 32 creatinine 2.1. Glucose 667 anion gap 13 except calcium 7.9. AST 46 ALT 50. Troponin 0 0.01 CRP 55.3. Albumin 2.3. Urinalysis revealed pyuria +1 leukocyte esterase plus for glucose +3 protein and moderate bacteria. Lactic acid 2.4, repeated 1.5. Patient received 2 L of normal saline since chest x-ray showed no evidence of acute CHF. Patient received insulin labs did not show DKA patient started on broad-spectrum antibiotic and admitted for further management. CONSULTANTS: ID specialist Dr. Nunez surgery Dr. Sherman [facility] COURSE: [] Patient started on IV hydration and IV insulin as per protocol. Patient started on empiric antibiotic. Rapid COVID-19 was negative. Influenza swab was negative. Urine culture revealed E. coli. Leukocytosis resolved antibiotic regimen optimized as per ID specialist recommendation. Blood sugar was managed with long-acting Levemir short acting insulin premeal short-acting insulin and sliding scale of insulin as needed. Doses uptitrated based on blood sugar reason. Reading. Blood sugar stabilized. Diabetic diet and diabetic teaching provided. Patient was counseled compliance with medication regimen at home. Patient will need further follow-up with her primary care provider as outpatient and strict adherence with medication regimen. Blood pressure. CT of the head revealed no acute intracranial pathology. Chest x-ray revealed borderline cardiomegaly no acute no definite acute process. MRI of the brain showed no evidence of infarct, intracranial bleeding or significant parenchymal enhancement. No mass-effect. Cervical spine MRI and lumbar spine MRI were essentially unremarkable. No evidence of significant neural impingement on nerve or nerve root enhancement. Venous duplex bilateral lower extremity revealed no evidence of acute DVT. Blood pressure was managed with LUIZA inhibitor. Hydralazine was on board as needed. Statin continued. Supportive care provided. Fall precaution maintained patient was working with a physical therapist. Hemoglobin A1c above 11. Antihypertensive medication regimen was advanced blood pressure stabilized. LUIZA inhibitor and statin were added for blood sugar. Prior to discharge all electrolytes and renal parameters stable glucose 85 patient clinically stabilized and was ready for discharge home. Patient was counseled on compliance with medication regimen and diet at home FINAL DIAGNOSES: Sepsis due to UTI E. coli UTI Diabetic ketoacidosis -resolved [id number] diabetes mellitus [id number] Acute renal failure-resolved Hypovolemia/dehydration Hypertension/hypertensive heart disease Hyponatremia-resolved Noncompliance Lactic acidosis DISCHARGE MEDICATIONS: See Medication Reconciliation list. DISCHARGE INSTRUCTIONS: Patient was discharged home. Follow-up with a primary care provider in 1 week. I have been assigned to dictate discharge summary for this account. I was not involved in the patient's management. Mattie Laws NP Aug 10, 2020 13:11
--- NOTE | 2020-08-10 15:16 | NUR ---
INSURANCE DC SUMMARY FAXED TO T: [phone] F: [phone]
== END 2020-08-08 16:10 | disposition home or self-care (01) | DRG 720 ==
LOC: EDBD 11:03 → EMR 11:30 → EDBEDREQSVC 12:14 → EDBEDREQ 12:14 → ICU 13:04 → EDBEDREQ 16:28 → 2E 08-04 11:25 → 3E 08-05 12:40
PROC: 02H633Z Insertion of Infusion Device into Right Atrium, Percutaneous Approach (ICD-10-PCS; principal; 2020-08-03)
DX: A41.9 Sepsis, unspecified organism (principal); N39.0 Urinary tract infection, site not specified; E11.10 Type 2 diabetes mellitus with ketoacidosis without coma; I11.0 Hypertensive heart disease with heart failure; I50.33 Acute on chronic diastolic (congestive) heart failure; B96.20 Unspecified Escherichia coli [E. coli] as the cause of diseases classified elsewhere; E86.1 Hypovolemia; E87.1 Hypo-osmolality and hyponatremia; E46 Unspecified protein-calorie malnutrition; E43 Unspecified severe protein-calorie malnutrition; Z91.19 Patient's noncompliance with other medical treatment and regimen; E86.0 Dehydration; N17.9 Acute kidney failure, unspecified
CPT/HCPCS: 36415; 36569; 70450; 70553; 71045; 72156; 72158; 76937; 80053; 80061; 80202; 81003; 82009; 82150; 82248; 82550; 82803; 82962; 83605; 83690; 83735; 83880; 84100; 84443; 84484; 85007; 85025; 85610; 85651; 85730; 86140; 86710; 87081; 87086; 87181; 93005; 93306; 93970; 96365; 96367; 96375; 99291; A9585; J1815; J7030; S5561; U0002